=== PATIENT | female | born 2000 | race Two or more races ===

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

== ENCOUNTER 2018-05-22 14:24 | Emergency (ER) | payer OTHER ==
[2018-05-22 14:28] VITALS: BP 134/87; PULSE 88; RESP 18; TEMP 98.7
--- NOTE | 2018-05-22 14:39 | ED ---
Upper Extremity HPI - General Chief Complaint: Extremity Injury, Upper Stated Complaint: Fall, Shoulder pain Time Seen by Provider: 05/22/18 14:31 Source: patient, RN notes reviewed, old records reviewed Mode of arrival: ambulatory Limitations: no limitations - History of Present Illness Initial Comments: Patient is a 17-year-old female presents emergency Department chief complaint of right shoulder pain. Patient reports she's been dealing with chronic right shoulder pain for many months. She is follow-up with applications specialist and did have MRIs. Patient reports that on Monday she slipped on Monday and fell onto her right arm and shoulder. Patient reports that since that time she's had worsening pain and pain with any range of motion. She reports that she has is unable to abduct the shoulder greater than 90. Patient reports that she occasionally has had numbness and tingling down the arm. Her orthopedic is subsequently referred her to the neurologist who she is supposed to see in 2 weeks. Patient states that all of her symptoms have been exacerbated with this most recent fall. She denies any head or neck injury at that time. - Related Data Home Medications Medication Instructions Recorded Confirmed Montelukast [Singulair] 10 mg PO HS 11/03/13 04/09/17 Ferrous Sulfate [Feosol] 325 mg PO HS 07/20/15 04/09/17 Pantoprazole Sodium [Protonix] 20 mg PO HS 07/26/15 04/09/17 Multivitamins, Thera [Multivitamin] 1 tab PO HS 05/31/16 04/09/17 Amitriptyline HCl [Elavil] 75 mg PO HS 06/01/16 04/09/17 Escitalopram [Lexapro] 20 mg PO HS 08/31/16 04/09/17 Fluticasone/Salmeterol [Advair 1 inhalation PO RT-BID 08/31/16 04/09/17 250-50 Diskus] Melatonin 5 mg PO HS 08/31/16 04/09/17 Previous Rx's Medication Instructions Recorded Ibuprofen [Motrin] 600 mg PO Q6HR PRN #40 day 11/01/17 Cyclobenzaprine [Flexeril] 10 mg PO TID #15 tab 05/22/18 Ibuprofen 600 mg PO TID #20 tablet 05/22/18 Allergies Allergy/AdvReac Type Severity Reaction Status Date / Time No Known Allergies Allergy Verified 05/22/18 14:28 Review of Systems ROS Statement: Those systems with pertinent positive or pertinent negative responses have been documented in the HPI. ROS Other: All systems not noted in ROS Statement are negative. Past Medical History Past Medical History: Asthma, GERD/Reflux Additional Past Medical History / Comment(s): STOMACH PROBLEMS History of Any Multi-Drug Resistant Organisms: None Reported Past Surgical History: Appendectomy, Cholecystectomy Past Psychological History: Anxiety Smoking Status: Never smoker Past Alcohol Use History: None Reported Past Drug Use History: None Reported - Past Family History Father Family Medical History: Diabetes Mellitus, Hypertension Sister(s) Family Medical History: Asthma General Exam - General Exam Comments Initial Comments: This Patient is a 17-year-old female. Alert and oriented. Patient appears in no significant distress. Limitations: no limitations General appearance: alert, in no apparent distress Head exam: Present: atraumatic, normocephalic, normal inspection Eye exam: Present: normal appearance, PERRL, EOMI. Absent: scleral icterus, conjunctival injection, periorbital swelling ENT exam: Present: normal exam, mucous membranes moist Neck exam: Present: tenderness (Patient has tenderness over the right-sided paraspinal muscles and spine, extending to the trapezius. ). Absent: normal inspection, meningismus, lymphadenopathy Respiratory exam: Present: normal lung sounds bilaterally. Absent: respiratory distress, wheezes, rales, rhonchi, stridor Cardiovascular Exam: Present: regular rate, normal rhythm, normal heart sounds. Absent: systolic murmur, diastolic murmur, rubs, gallop, clicks Right Shoulder Exam: Present: normal inspection, tenderness (Tenderness over the third of the clavicle, and over the posterior shoulder and supraspinatus and trapezius.). Absent: full ROM ( has pain with abduction greater than 90.), swelling, abrasion Upper Arm exam: Present: normal inspection, full ROM Elbow exam: Present: normal inspection, full ROM Forearm Wrist exam: Present: normal inspection, full ROM Back exam: Present: normal inspection Neurological exam: Present: alert, oriented X3, CN II-XII intact Psychiatric exam: Present: normal affect, normal mood Skin exam: Present: warm, dry, intact, normal color. Absent: rash Course Vital Signs 05/22/18 14:25 Temperature 98.7 F Pulse Rate 88 Respiratory 18 Rate Blood Pressure 134/87 O2 Sat by Pulse 100 Oximetry Medical Decision Making - Medical Decision Making Patient is a 17-year-old female presents emergency Department today with chief complaint of right shoulder pain. Patient reports she fell on Monday on Monday. She's had history of chronic right shoulder problems. She has pain with abduction greater than 90. Normal capillary refill. Normal sensation distally. At this time x-rays of the acute process. She does have significant tenderness over the trapezius and concern for some muscle spasms at this time. She'll use and I am currently Norflex. I discussed the Patient can take muscle relaxer, and a temperature medication. Discussed falling up with applications specialist. She'll be given a sling. All questions answered return parameters were discussed. - Radiology Data Radiology results: report reviewed X-rays negative for any acute fracture dislocation of the right shoulder.If you change from prior. Disposition Clinical Impression: Rotator cuff injury, Trapezius muscle spasm Disposition: HOME SELF-CARE Condition: Good Instructions: Rotator Cuff Injury (ED) Additional Instructions: Patient advised to follow-up with applications specialist and primary care physician. Return to emergency department if any alarming signs or symptoms occur. Prescriptions: Cyclobenzaprine [Flexeril] 10 mg PO TID #15 tab Ibuprofen 600 mg PO TID #20 tablet Is patient prescribed a controlled substance at d/c from ED?: No Referrals: Barbi Flores MD [Primary Care Provider] - 1-2 days Garfield Canseco MD [STAFF PHYSICIAN] - 1-2 days Time of Disposition: 15:00
--- NOTE | 2018-05-22 14:54 | XR ---
EXAMINATION TYPE: XR shoulder complete RT DATE OF EXAM: 05/22/2018 CLINICAL HISTORY: Pain since fall injury 3 days ago. TECHNIQUE: Three views of the right shoulder are obtained. COMPARISON: Right shoulder x-ray November 01, 2017 FINDINGS: There is no acute fracture/dislocation evident in the right shoulder. The acromioclavicul ar and glenohumeral joint spaces appear within normal limits. The visualized ribs are intact and unr emarkable. IMPRESSION: There is no acute fracture or dislocation in the right shoulder. No significant change f rom prior.
[2018-05-22] MEDS ORDERED: KETOROLAC 60 MG/2 ML VIAL IM STA (14:59)
[2018-05-22] MEDS ORDERED: ORPHENADRINE 30 MG/ML 2 ML VIAL IM STA (14:59)
== END 2018-05-22 15:15 | disposition home or self-care (01) ==
LOC: EC 14:24
DX: S46.001A Unspecified injury of muscle(s) and tendon(s) of the rotator cuff of right shoulder, initial encounter (principal); M62.838 Other muscle spasm; J45.909 Unspecified asthma, uncomplicated; K21.9 Gastro-esophageal reflux disease without esophagitis; F41.9 Anxiety disorder, unspecified; Z79.899 Other long term (current) drug therapy; W01.0XXA Fall on same level from slipping, tripping and stumbling without subsequent striking against object, initial encounter
CPT/HCPCS: 73030; 99284; 96372 ×2; J2360; J1885

== ENCOUNTER → 2018-10-30 | Outpatient (CLI) | payer OTHER ==
--- NOTE | 2018-10-30 19:03 | XR ---
EXAMINATION TYPE: XR wrist complete RT DATE OF EXAM: 10/30/2018 COMPARISON: NONE HISTORY: 17 year-old female with wrist pain after fall 4 months ago TECHNIQUE: 3 views FINDINGS: Positive ulnar variance is demonstrated. The radiocarpal and midcarpal compartment appear intact. No acute fracture or dislocation seen. IMPRESSION: No acute osseous abnormality seen. Positive ulnar variance which may contribute to ulnar impaction sy ndrome/TFC tears.
== END | disposition home or self-care (01) ==
LOC: RADXRYALE 13:28
PROVIDERS: ATTEND Internal Medicine
DX: R93.7 Abnormal findings on diagnostic imaging of other parts of musculoskeletal system (principal); M25.531 Pain in right wrist

== ENCOUNTER 2019-05-24 19:15 | Emergency (ER) | payer OTHER ==
[2019-05-24 19:24] VITALS: RESP 18
[2019-05-24] MEDS ORDERED: SODIUM CHLORIDE 0.9% 1,000 ML IV STA (19:51)
--- NOTE | 2019-05-24 19:51 | ED ---
General Adult HPI - General Chief complaint: Nausea/Vomiting/Diarrhea Stated complaint: Abd pain, nausea Time Seen by Provider: 05/24/19 19:24 Source: patient, RN notes reviewed Mode of arrival: ambulatory Limitations: no limitations - History of Present Illness Initial comments: 1-year-old female presents emergency from treatment of right-sided abdominal pain. Patient states she's had on and off symptoms over the last 1 month but states since Monday she's had worsening symptoms. Patient states that she also started her menstrual cycle. Denies any chance . Patient denies any dysuria, hematuria, fever or chills. Patient has had mild constipation but that seemed to resolve. Patient states she's had prior cholecystectomy and appende ctomy. Patient states nothing really makes the pain feel better or worse. Most her pain is her right lower quadrant no prior ovarian issues. Denies any vaginal discharge. She does have mild bleeding. - Related Data Home Medications Medication Instructions Recorded Confirmed Montelukast [Singulair] 10 mg PO HS 11/03/13 05/22/18 Ferrous Sulfate [Feosol] 325 mg PO HS 07/20/15 05/22/18 Pantoprazole Sodium [Protonix] 20 mg PO HS 07/26/15 05/22/18 Multivitamins, Thera [Multivitamin] 1 tab PO HS 05/31/16 05/22/18 Amitriptyline HCl [Elavil] 75 mg PO HS 06/01/16 05/22/18 Escitalopram [Lexapro] 20 mg PO HS 08/31/16 05/22/18 Fluticasone/Salmeterol [Advair 1 inhalation PO RT-BID 08/31/16 05/22/18 250-50 Diskus] Melatonin 5 mg PO HS 08/31/16 05/22/18 Previous Rx's Medication Instructions Recorded Ibuprofen [Motrin] 600 mg PO Q6HR PRN #40 day 11/01/17 Cyclobenzaprine [Flexeril] 10 mg PO TID #15 tab 05/22/18 Ibuprofen 600 mg PO TID #20 tablet 05/22/18 Ibuprofen [Motrin] 600 mg PO Q8HR PRN #30 tab 05/24/19 Allergies Allergy/AdvReac Type Severity Reaction Status Date / Time No Known Allergies Allergy Verified 05/24/19 19:22 Review of Systems ROS Statement: Those systems with pertinent positive or pertinent negative responses have been documented in the HPI. ROS Other: All systems not noted in ROS Statement are negative. Past Medical History Past Medical History: Asthma, GERD/Reflux Additional Past Medical History / Comment(s): STOMACH PROBLEMS History of Any Multi-Drug Resistant Organisms: None Reported Past Surgical History: Appendectomy, Cholecystectomy Past Psychological History: Anxiety Smoking Status: Never smoker Past Alcohol Use History: None Reported Past Drug Use History: None Reported - Past Family History Father Family Medical History: Diabetes Mellitus, Hypertension Sister(s) Family Medical History: Asthma General Exam Limitations: no limitations General appearance: alert, in no apparent distress Head exam: Present: atraumatic, normocephalic, normal inspection Eye exam: Present: normal appearance, PERRL, EOMI. Absent: scleral icterus, conjunctival injection, periorbital swelling ENT exam: Present: normal exam, normal oropharynx, mucous membranes moist Neck exam: Present: normal inspection, full ROM. Absent: tenderness, meningismus, lymphadenopathy Respiratory exam: Present: normal lung sounds bilaterally. Absent: respiratory distress, wheezes, rales, rhonchi, stridor Cardiovascular Exam: Present: normal rhythm, tachycardia, normal heart sounds. Absent: systolic murmur, diastolic murmur, rubs, gallop, clicks GI/Abdominal exam: Present: soft, tenderness (Mild right-sided), normal bowel sounds. Absent: distended, guarding, rebound, rigid Back exam: Absent: CVA tenderness (R), CVA tenderness (L) Skin exam: Present: warm, dry, intact, normal color. Absent: rash Course Vital Signs 05/24/19 19:19 Temperature 98.9 F Pulse Rate 110 H Respiratory 18 Rate Blood Pressure 132/80 O2 Sat by Pulse 99 Oximetry Medical Decision Making - Medical Decision Making Labs urinalysis unremarkable ultrasound shows dominant follicle 1.2 cm in the right and this may be causing some discomfort. Patient's has no worsening symptoms emergency department. Patient is comfortable with conservative treatment and follow up with symptoms worsen. - Lab Data Result diagrams: 05/24/19 19:56 05/24/19 19:56 Lab Results 05/24/19 05/24/19 05/24/19 Range/Units 19:55 19:55 19:56 WBC (4.0-11.0) k/uL RBC (3.80-5.40) m/uL Hgb (11.4-16.0) gm/dL Hct (34.0-46.0) % MCV (80.0-100.0) fL MCH (25.0-35.0) pg MCHC (31.0-37.0) g/dL RDW (11.5-15.5) % Plt Count (150-450) k/uL Neutrophils % % Lymphocytes % % Monocytes % % Eosinophils % % Basophils % % Neutrophils # (1.3-7.7) k/uL Lymphocytes # (1.0-4.8) k/uL Monocytes # (0-1.0) k/uL Eosinophils # (0-0.7) k/uL Basophils # (0-0.2) k/uL Sodium 142 (137-145) mmol/L Potassium 4.1 (3.5-5.1) mmol/L Chloride 107 (98-107) mmol/L Carbon Dioxide 28 (22-30) mmol/L Anion Gap 7 mmol/L BUN 6 L (7-17) mg/dL Creatinine 0.68 (0.52-1.04) mg/dL Est GFR (CKD-EPI)AfAm >90 (>60 ml/min/1.73 sqM) Est GFR (CKD-EPI)NonAf >90 (>60 ml/min/1.73 sqM) Glucose 88 (74-99) mg/dL Calcium 9.3 (8.4-10.2) mg/dL Total Bilirubin 0.1 L (0.2-1.3) mg/dL AST 20 (14-36) U/L ALT 26 (9-52) U/L Alkaline Phosphatase 121 (38-126) U/L Total Protein 6.9 (6.3-8.2) g/dL Albumin 4.0 (3.5-5.0) g/dL Amylase 42 (30-110) U/L Lipase 39 (23-300) U/L Urine Color Yellow Urine Appearance Cloudy H (Clear) Urine pH 6.0 (5.0-8.0) Ur Specific [place] 1.019 (1.001-1.035) Urine Protein Negative (Negative) Urine Glucose (UA) Negative (Negative) Urine Ketones Negative (Negative) Urine Blood Moderate H (Negative) Urine Nitrite Negative (Negative) Urine Bilirubin Negative (Negative) Urine Urobilinogen <2.0 (<2.0) mg/dL Ur Leukocyte Esterase Small H (Negative) Urine RBC <1 (0-5) /hpf Urine WBC 4 (0-5) /hpf Ur Squamous Epith Cells 10 H (0-4) /hpf Urine Bacteria Rare H (None) /hpf Urine Mucus Rare H (None) /hpf Urine HCG, Qual Not Detected (Not Detectd) 05/24/19 Range/Units 19:56 WBC 9.7 (4.0-11.0) k/uL RBC 4.63 (3.80-5.40) m/uL Hgb 12.4 (11.4-16.0) gm/dL Hct 37.9 (34.0-46.0) % MCV 82.0 (80.0-100.0) fL MCH 26.9 (25.0-35.0) pg MCHC 32.8 (31.0-37.0) g/dL RDW 13.2 (11.5-15.5) % Plt Count 491 H (150-450) k/uL Neutrophils % 64 % Lymphocytes % 28 % Monocytes % 4 % Eosinophils % 2 % Basophils % 1 % Neutrophils # 6.2 (1.3-7.7) k/uL Lymphocytes # 2.7 (1.0-4.8) k/uL Monocytes # 0.4 (0-1.0) k/uL Eosinophils # 0.2 (0-0.7) k/uL Basophils # 0.1 (0-0.2) k/uL Sodium (137-145) mmol/L Potassium (3.5-5.1) mmol/L Chloride (98-107) mmol/L Carbon Dioxide (22-30) mmol/L Anion Gap mmol/L BUN (7-17) mg/dL Creatinine (0.52-1.04) mg/dL Est GFR (CKD-EPI)AfAm (>60 ml/min/1.73 sqM) Est GFR (CKD-EPI)NonAf (>60 ml/min/1.73 sqM) Glucose (74-99) mg/dL Calcium (8.4-10.2) mg/dL Total Bilirubin (0.2-1.3) mg/dL AST (14-36) U/L ALT (9-52) U/L Alkaline Phosphatase (38-126) U/L Total Protein (6.3-8.2) g/dL Albumin (3.5-5.0) g/dL Amylase (30-110) U/L Lipase (23-300) U/L Urine Color Urine Appearance (Clear) Urine pH (5.0-8.0) Ur Specific [place] (1.001-1.035) Urine Protein (Negative) Urine Glucose (UA) (Negative) Urine Ketones (Negative) Urine Blood (Negative) Urine Nitrite (Negative) Urine Bilirubin (Negative) Urine Urobilinogen (<2.0) mg/dL Ur Leukocyte Esterase (Negative) Urine RBC (0-5) /hpf Urine WBC (0-5) /hpf Ur Squamous Epith Cells (0-4) /hpf Urine Bacteria (None) /hpf Urine Mucus (None) /hpf Urine HCG, Qual (Not Detectd) Disposition Clinical Impression: Abdominal pain Disposition: HOME SELF-CARE Condition: Stable Instructions (If sedation given, give patient instructions): Abdominal Pain (ED) Additional Instructions: Please return to the Emergency Department if symptoms worsen or any other concerns. Prescriptions: Ibuprofen [Motrin] 600 mg PO Q8HR PRN #30 tab PRN Reason: Pain Is patient prescribed a controlled substance at d/c from ED?: No Referrals: Barbi Flores MD [Primary Care Provider] - 1-2 days Time of Disposition: 21:33
[2019-05-24 20:16] LABS: Appearance,Urine Cloudy (Clear); Bacteria,Urine Rare /hpf; Bilirubin,Urine Negative (Negative); Blood,Urine Moderate (Negative); Color,Urine Yellow; Glucose,Urine (UA) Negative (Negative); Ketones,Urine Negative (Negative); Leukocyte Esterase,Urine Small (Negative); Mucus,Urine Rare /hpf; Nitrite,Urine Negative (Negative); Protein,Urine Negative (Negative); RBC,Urine <1 /hpf (0-5); Specific Gravity,Urine 1.019 (1.001-1.035); Squamous Epithelial Cell,Urine 10 /hpf (0-4); Urobilinogen,Urine <2.0 mg/dL (<2.0)
[2019-05-24 20:17] LABS: ALT 26 U/L (9-52); AST 20 U/L (14-36); African American GFR (CKD) >90 (>60 ml/min/1.73 sqM); Alkaline Phosphatase 121 U/L (38-126); Amylase 42 U/L (30-110); Anion Gap 7 mmol/L; Blood Urea Nitrogen 6 mg/dL (7-17); Calcium 9.3 mg/dL (8.4-10.2); Carbon Dioxide 28 mmol/L (22-30); Chloride 107 mmol/L (98-107); Glucose 88 mg/dL (74-99); Non-African American GFR(CKD) >90 (>60 ml/min/1.73 sqM); Potassium 4.1 mmol/L (3.5-5.1); Sodium 142 mmol/L (137-145); Total Bilirubin 0.1 mg/dL (0.2-1.3); Total Protein 6.9 g/dL (6.3-8.2)
[2019-05-24 21:14] LABS: Basophils # (A) 0.1 k/uL (0-0.2); Basophils % (A) 1 %; Eosinophils # (A) 0.2 k/uL (0-0.7); Eosinophils % (A) 2 %; HCT 37.9 % (34.0-46.0); HGB 12.4 gm/dL (11.4-16.0); Lymphocytes # (A) 2.7 k/uL (1.0-4.8); Lymphocytes % (A) 28 %; MCH 26.9 pg (25.0-35.0); MCHC 32.8 g/dL (31.0-37.0); Mean Platelet Volume 6.2; Monocytes # (A) 0.4 k/uL (0-1.0); Monocytes % (A) 4 %; Neutrophils # (A) 6.2 k/uL (1.3-7.7); Neutrophils % (A) 64 %; Platelet Count 491 k/uL (150-450); RBC 4.63 m/uL (3.80-5.40); RDW 13.2 % (11.5-15.5); WBC 9.7 k/uL (4.0-11.0)
--- NOTE | 2019-05-24 21:24 | US ---
EXAMINATION TYPE: US transvaginal DATE OF EXAM: 05/24/2019 COMPARISON: US 2016 CLINICAL HISTORY: pain. Intermittent pelvic pain and nausea TECHNIQUE: Transvaginal ER exam. Date of LMP: 05/21/2019 EXAM MEASUREMENTS: Uterus: 5.2 x 3.2 x 4.4 cm Endometrial Stripe: 0.3 cm Right Ovary: 2.9 x 1.5 x 2.2 cm Left Ovary: 2.2 x 1.5 x 2.3 cm 1. Uterus: anteverted 2. Endometrium: wnl 3. Right Ovary: 1.2cm dominant follicle 4. Left Ovary: wnl Doppler perfusion documented with pulsed wave Doppler, within the right and the left ovary. 5. Bilateral Adnexa: wnl 6. Posterior cul-de-sac: wnl IMPRESSION: No acute process.
[2019-05-24 21:38] VITALS: BP 128/79; PULSE 98; TEMP 98
== END 2019-05-24 21:39 | disposition home or self-care (01) ==
LOC: EC 19:15
DX: R10.31 Right lower quadrant pain (principal); R93.89 Abnormal findings on diagnostic imaging of other specified body structures; R00.0 Tachycardia, unspecified; K59.00 Constipation, unspecified; N94.89 Other specified conditions associated with female genital organs and menstrual cycle; J45.909 Unspecified asthma, uncomplicated; K21.9 Gastro-esophageal reflux disease without esophagitis; F41.9 Anxiety disorder, unspecified; Z79.51 Long term (current) use of inhaled steroids; Z79.899 Other long term (current) drug therapy; Z90.49 Acquired absence of other specified parts of digestive tract
CPT/HCPCS: 36415; 76830; 80053; 81001; 81025; 82150; 83690; 85025; 93975; 96360; 99284

== ENCOUNTER 2019-08-27 16:03 | Emergency (ER) | payer OTHER ==
[2019-08-27 16:15] VITALS: BP 145/94; PULSE 89; RESP 20; TEMP 98.1
[2019-08-27 16:40] LABS: Appearance,Urine Cloudy (Clear); Bacteria,Urine Rare /hpf; Bilirubin,Urine Negative (Negative); Blood,Urine Negative (Negative); Color,Urine Yellow; Glucose,Urine (UA) Negative (Negative); Ketones,Urine Negative (Negative); Leukocyte Esterase,Urine Large (Negative); Mucus,Urine Rare /hpf; Nitrite,Urine Negative (Negative); Protein,Urine Negative (Negative); RBC,Urine 2 /hpf (0-5); Specific Gravity,Urine 1.017 (1.001-1.035); Squamous Epithelial Cell,Urine 13 /hpf (0-4); Urobilinogen,Urine <2.0 mg/dL (<2.0); WBC,Urine 4 /hpf (0-5)
--- NOTE | 2019-08-27 16:43 | ED ---
Abdominal Pain HPI - General Chief Complaint: Abdominal Pain Stated Complaint: test Time Seen by Provider: 08/27/19 16:17 Source: patient Mode of arrival: ambulatory Limitations: no limitations - History of Present Illness Initial Comments: Patient is a 18-year-old female presenting to emergency Department with complaints of some mild right lower quadrant pain as well as intermittent nausea and vomiting for the past 1-2 weeks. She denies fever, chills, diarrhea. She states she does have a history of a right-sided ovarian cyst. She has history of appendectomy, cholecystectomy. She denies chest pain, shortness of breath. She states she took an at home test that was negative. She states she does take control pills however she missed a week since she was out of town. Patient states she is also mildly concerned with SCDs secondary to her boyfriend cheating on her. She denies having any vaginal discharge or dysuria. She has no other complaints. Upon arrival to the ER, vital signs are stable. - Related Data Home Medications Medication Instructions Recorded Confirmed Montelukast [Singulair] 10 mg PO HS 11/03/13 05/22/18 Ferrous Sulfate [Feosol] 325 mg PO HS 07/20/15 05/22/18 Pantoprazole Sodium [Protonix] 20 mg PO HS 07/26/15 05/22/18 Multivitamins, Thera [Multivitamin] 1 tab PO HS 05/31/16 05/22/18 Amitriptyline HCl [Elavil] 75 mg PO HS 06/01/16 05/22/18 Escitalopram [Lexapro] 20 mg PO HS 08/31/16 05/22/18 Fluticasone/Salmeterol [Advair 1 inhalation PO RT-BID 08/31/16 05/22/18 250-50 Diskus] Melatonin 5 mg PO HS 08/31/16 05/22/18 Previous Rx's Medication Instructions Recorded Ibuprofen [Motrin] 600 mg PO Q6HR PRN #40 day 11/01/17 Cyclobenzaprine [Flexeril] 10 mg PO TID #15 tab 05/22/18 Ibuprofen 600 mg PO TID #20 tablet 05/22/18 Ibuprofen [Motrin] 600 mg PO Q8HR PRN #30 tab 05/24/19 Allergies Allergy/AdvReac Type Severity Reaction Status Date / Time No Known Allergies Allergy Verified 08/27/19 16:15 Review of Systems ROS Statement: Those systems with pertinent positive or pertinent negative responses have been documented in the HPI. ROS Other: All systems not noted in ROS Statement are negative. Past Medical History Past Medical History: Asthma, GERD/Reflux Additional Past Medical History / Comment(s): STOMACH PROBLEMS History of Any Multi-Drug Resistant Organisms: None Reported Past Surgical History: Appendectomy, Cholecystectomy Past Psychological History: Anxiety Smoking Status: Never smoker Past Alcohol Use History: None Reported Past Drug Use History: None Reported - Past Family History Father Family Medical History: Diabetes Mellitus, Hypertension Sister(s) Family Medical History: Asthma General Exam - General Exam Comments Initial Comments: GENERAL: Well-appearing, well-nourished and in no acute distress. HEAD: Atraumatic, normocephalic. EYES: Pupils equal round and reactive to light, extraocular movements intact, sclera anicteric, conjunctiva are normal. ENT: TMs normal, nares patent, oropharynx clear without exudates. Moist mucous membranes. NECK: Normal range of motion, supple without lymphadenopathy or JVD. LUNGS: Breath sounds clear to auscultation bilaterally and equal. No wheezes rales or rhonchi. HEART: Regular rate and rhythm without murmurs, rubs or gallops. ABDOMEN: Soft, nontender, normoactive bowel sounds. No guarding, no rebound. No masses appreciated. EXTREMITIES: Normal range of motion, no pitting or edema. No clubbing or cyanosis. SKIN: Warm, Dry, normal turgor, no rashes or lesions noted. Limitations: no limitations External exam: Present: normal external exam Speculum exam: Present: normal speculum exam. Absent: cervical discharge, vaginal bleeding, foreign body By manual exam: Present: normal by manual exam Course Vital Signs 08/27/19 16:11 Temperature 98.1 F Pulse Rate 89 Respiratory 20 Rate Blood Pressure 145/94 O2 Sat by Pulse 99 Oximetry Medical Decision Making - Medical Decision Making Patient is a 18-year-old female here for mild right sided lower abdominal discomfort as well as intermittent nausea and vomiting for the past 1-2 weeks. Vital signs are stable. Her exam is unremarkable, no abdominal pain on palpation. Vaginal exam is normal. Urine is normal, patient is not . Trichomonas is negative. Gonorrhea, chlamydia, genital culture are all pending at this time. I reviewed these findings with the patient. Her pain is most likely related to her ovarian cyst. Patient will continue to take Motrin as needed for pain relief. Patient stable for discharge at this time and she is in agreement with this plan of care. Return parameters were discussed with the patient she verbalized understanding. - Lab Data Lab Results 08/27/19 08/27/19 08/27/19 Range/Units 16:20 16:20 16:45 Urine Color Yellow Urine Appearance Cloudy H (Clear) Urine pH 7.0 (5.0-8.0) Ur Specific [place] 1.017 (1.001-1.035) Urine Protein Negative (Negative) Urine Glucose (UA) Negative (Negative) Urine Ketones Negative (Negative) Urine Blood Negative (Negative) Urine Nitrite Negative (Negative) Urine Bilirubin Negative (Negative) Urine Urobilinogen <2.0 (<2.0) mg/dL Ur Leukocyte Esterase Large H (Negative) Urine RBC 2 (0-5) /hpf Urine WBC 4 (0-5) /hpf Ur Squamous Epith Cells 13 H (0-4) /hpf Urine Bacteria Rare H (None) /hpf Urine Mucus Rare H (None) /hpf Urine HCG, Qual Not Detected (Not Detectd) Trichomonas Ag (Rapid) Negative (Negative) Disposition Clinical Impression: Abdominal pain Disposition: HOME SELF-CARE Condition: Stable Instructions (If sedation given, give patient instructions): Abdominal Pain (ED) Additional Instructions: Please return to the Emergency Department if symptoms worsen or any other concerns. Follow-up with PCP. May take Motrin for pain relief. Is patient prescribed a controlled substance at d/c from ED?: No Referrals: Barbi Flores MD [Primary Care Provider] - 1-2 days
[2019-08-28 14:05] LABS: C. trachomatis,PCR Negative (Neg,Equiv); Chlamydia trachomatis Source Cervix; N. gonorrhoeae,PCR Negative (Neg,Equiv); Neisseria Source Cervix
== END 2019-08-27 17:12 | disposition home or self-care (01) ==
LOC: EC 16:03
DX: R10.31 Right lower quadrant pain (principal); R11.2 Nausea with vomiting, unspecified; Z32.02 Encounter for pregnancy test, result negative; J45.909 Unspecified asthma, uncomplicated; K21.9 Gastro-esophageal reflux disease without esophagitis; F41.9 Anxiety disorder, unspecified; Z90.49 Acquired absence of other specified parts of digestive tract; Z79.51 Long term (current) use of inhaled steroids; Z79.899 Other long term (current) drug therapy
CPT/HCPCS: 81001; 81025; 87070; 87491; 87591; 87808; 99284

== ENCOUNTER → 2020-04-29 | Outpatient (CLI) | payer BC | END | disposition home or self-care (01) | LOC: LABWHC1 16:13 | PROVIDERS: ATTEND Internal Medicine | DX: Z20.828 Contact with and (suspected) exposure to other viral communicable diseases (principal) | CPT/HCPCS: U0003; C9803 ==

== ENCOUNTER → 2021-01-19 | Outpatient (CLI) | payer OTHER ==
--- NOTE | 2021-01-19 15:11 | US ---
EXAMINATION TYPE: Transabdominal DATE OF EXAM: 01/19/2021 2:40 PM COMPARISON: NONE CLINICAL HISTORY: Z36 Confrim dates. EXAM PERFORMED: Transabdominal (TA) EXAM MEASUREMENTS: GESTATIONAL AGE / DATING Physician Established: Not yet established Dates by LMP: (9 weeks/5 days) EDC: 08/19/2021 Dates by First Scan: No previous this is first scan Dates by Current Scan for: (10 weeks/1 days) EDC: 08/16/2021 MATERNAL ANATOMY Uterus: 13.5 x 4.8 x 5.9cm Right Ovary: 3.3 x 1.7 x 1.5cm Left Ovary: 2.9 x 1.8 x 2.2cm Post CDS / Adnexa: wnl Presence of free fluid: no Presence of corpus luteal cyst: left ovary: 2.0cm Presence of subchorionic bleed: no GESTATION / SURVEY CRL: 3.2cm (10 weeks/1 days) Yolk Sac (normal less than 6mm): not seen Heart Rate: 160 bpm Rhythm: Normal IUP: Viable IUP Date of LMP: 11/12/2020 Viable single IUP measuring 10 weeks 1 day with a heart rate of 160bpm and an estimated delivery date of 08/16/2021. IMPRESSION: Single live intrauterine measuring approximately 10 weeks and 1 day gestation by sonographi c criteria.
== END | disposition home or self-care (01) ==
LOC: RADUSWWP 14:19
PROVIDERS: ATTEND Obstetrics & Gynecology
DX: Z36.89 Encounter for other specified antenatal screening (principal); Z3A.10 10 weeks gestation of pregnancy
CPT/HCPCS: 76801

== ENCOUNTER 2021-02-07 15:03 | Emergency (ER) | payer OTHER ==
--- NOTE | 2021-02-07 15:36 | ED ---
General Adult HPI - General Chief complaint: Vaginal Bleeding Stated complaint: vaginal bleeding, 12 weeks Time Seen by Provider: 02/07/21 15:15 Source: patient Mode of arrival: wheelchair Limitations: no limitations - History of Present Illness Initial comments: Dictation was produced using [employer] dictation software. please excuse any gra mmatical, word or spelling errors. Chief Complaint: 20-year-old female presents to the emergency department for vaginal bleeding and History of Present Illness: 20-year-old female she has no significant comorbidities. Patient is allegedly 12 weeks based on last menstrual cycle. She has had OB and care. 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 Today she has been having some vaginal bleeding. For the last 2-3 days she's had some pelvic cramping. She went to [facility] recently and was told that the bleeding was from changes and . Patient states she's having some suprapubic cramping. No nausea vomiting. This is her first . The ROS documented in this emergency department record has been reviewed and confirmed by me. Those systems with pertinent positive or negative responses have been documented in the HPI. All other systems are other negative and/or noncontributory. PHYSICAL EXAM: General Impression: Alert and oriented x3, not in acute distress HEENT: Normocephalic atraumatic, extra-ocular movements intact, pupils equal and reactive to light bilaterally, mucous membranes moist. Cardiovascular: Heart regular rate and rhythm Chest: Able to complete full sentences, no retractions, no tachypnea Abdomen: abdomen soft, non-tender, non-distended, no organomegaly Musculoskeletal: Pulses present and equal in all extremities, no peripheral edema Motor: no focal deficits noted Neurological: CN II-XII grossly intact, no focal motor or sensory deficits noted Skin: Intact with no visualized rashes Psych: Normal affect and mood Pelvic exam: Refused ED course: 20-year-old feel presents to the emergency department for vaginal bleeding and . She is allegedly 12 weeks . Vital Signs upon arrival are within acceptable limits. Blood type is A+. Laboratory evaluation within acceptable limits. Beta Quant is 141,000. Urinalysis shows blood but no signs of infection. Ultrasound shows live single intrauterine fetus with heart rate of 148 measuring 12 weeks and 6 days. Patient related bedside at 6 PM found to be stable medical condition. Patient counseled on pelvic rest and to follow-up with her orchestra leader. - Related Data Home Medications Medication Instructions Recorded Confirmed Montelukast [Singulair] 10 mg PO HS 11/03/13 05/22/18 Ferrous Sulfate [Feosol] 325 mg PO HS 07/20/15 05/22/18 Pantoprazole Sodium [Protonix] 20 mg PO HS 07/26/15 05/22/18 Multivitamins, Thera [Multivitamin] 1 tab PO HS 05/31/16 05/22/18 Amitriptyline HCl [Elavil] 75 mg PO HS 06/01/16 05/22/18 Escitalopram [Lexapro] 20 mg PO HS 08/31/16 05/22/18 Fluticasone/Salmeterol [Advair 1 inhalation PO RT-BID 08/31/16 05/22/18 250-50 Diskus] Melatonin 5 mg PO HS 08/31/16 05/22/18 Previous Rx's Medication Instructions Recorded Ibuprofen [Motrin] 600 mg PO Q6HR PRN #40 day 11/01/17 Cyclobenzaprine [Flexeril] 10 mg PO TID #15 tab 05/22/18 Ibuprofen 600 mg PO TID #20 tablet 05/22/18 Ibuprofen [Motrin] 600 mg PO Q8HR PRN #30 tab 05/24/19 Allergies Allergy/AdvReac Type Severity Reaction Status Date / Time No Known Allergies Allergy Verified 02/07/21 15:07 Review of Systems ROS Statement: Those systems with pertinent positive or pertinent negative responses have been documented in the HPI. ROS Other: All systems not noted in ROS Statement are negative. Past Medical History Past Medical History: Asthma, GERD/Reflux Additional Past Medical History / Comment(s): STOMACH PROBLEMS History of Any Multi-Drug Resistant Organisms: None Reported Past Surgical History: Appendectomy, Cholecystectomy Past Psychological History: Anxiety Smoking Status: Never smoker Past Alcohol Use History: None Reported Past Drug Use History: None Reported - Past Family History Father Family Medical History: Diabetes Mellitus, Hypertension Sister(s) Family Medical History: Asthma General Exam Limitations: no limitations Course Vital Signs 02/07/21 15:07 Temperature 98.7 F Pulse Rate 99 Respiratory 16 Rate Blood Pressure 126/85 O2 Sat by Pulse 97 Oximetry Medical Decision Making - Lab Data Result diagrams: 02/07/21 15:33 02/07/21 15:33 Lab Results 02/07/21 02/07/21 02/07/21 Range/Units 15:33 15:33 15:33 WBC 9.0 (3.8-10.6) k/uL RBC 4.58 (3.80-5.40) m/uL Hgb 12.0 (11.4-16.0) gm/dL Hct 36.2 (34.0-46.0) % MCV 78.9 L (80.0-100.0) fL MCH 26.1 (25.0-35.0) pg MCHC 33.1 (31.0-37.0) g/dL RDW 15.8 H (11.5-15.5) % Plt Count 342 (150-450) k/uL MPV 8.5 Neutrophils % 75 % Lymphocytes % 20 % Monocytes % 3 % Eosinophils % 1 % Basophils % 0 % Neutrophils # 6.7 (1.3-7.7) k/uL Lymphocytes # 1.8 (1.0-4.8) k/uL Monocytes # 0.3 (0-1.0) k/uL Eosinophils # 0.1 (0-0.7) k/uL Basophils # 0.0 (0-0.2) k/uL PT (9.0-12.0) sec INR (<1.2) APTT (22.0-30.0) sec Sodium 133 L (137-145) mmol/L Potassium 4.0 (3.5-5.1) mmol/L Chloride 106 (98-107) mmol/L Carbon Dioxide 20 L (22-30) mmol/L Anion Gap 7 mmol/L BUN 5 L (7-17) mg/dL Creatinine 0.51 L (0.52-1.04) mg/dL Est GFR (CKD-EPI)AfAm >90 (>60 ml/min/1.73 sqM) Est GFR (CKD-EPI)NonAf >90 (>60 ml/min/1.73 sqM) Glucose 83 (74-99) mg/dL Calcium 9.1 (8.4-10.2) mg/dL HCG, Quant 019733.0 mIU/mL Urine Color Dark Yellow Urine Appearance Cloudy H (Clear) Urine pH 6.0 (5.0-8.0) Ur Specific [place] 1.032 (1.001-1.035) Urine Protein 2+ H (Negative) Urine Glucose (UA) Negative (Negative) Urine Ketones Trace H (Negative) Urine Blood Moderate H (Negative) Urine Nitrite Negative (Negative) Urine Bilirubin 1+ H (Negative) Urine Urobilinogen 3.0 (<2.0) mg/dL Ur Leukocyte Esterase Trace H (Negative) Urine RBC 10 H (0-5) /hpf Urine WBC 4 (0-5) /hpf Ur Squamous Epith Cells 15 H (0-4) /hpf Urine Bacteria Rare H (None) /hpf Hyaline Casts 45 H (0-2) /lpf Urine Mucus Many H (None) /hpf Blood Type Blood Type Confirm Blood Type Recheck Bld Type Recheck Status Antibody Screen Spec Expiration Date 02/07/21 02/07/21 02/07/21 Range/Units 15:33 15:33 15:40 WBC (3.8-10.6) k/uL RBC (3.80-5.40) m/uL Hgb (11.4-16.0) gm/dL Hct (34.0-46.0) % MCV (80.0-100.0) fL MCH (25.0-35.0) pg MCHC (31.0-37.0) g/dL RDW (11.5-15.5) % Plt Count (150-450) k/uL MPV Neutrophils % % Lymphocytes % % Monocytes % % Eosinophils % % Basophils % % Neutrophils # (1.3-7.7) k/uL Lymphocytes # (1.0-4.8) k/uL Monocytes # (0-1.0) k/uL Eosinophils # (0-0.7) k/uL Basophils # (0-0.2) k/uL PT 10.1 (9.0-12.0) sec INR 0.9 (<1.2) APTT 21.6 L (22.0-30.0) sec Sodium (137-145) mmol/L Potassium (3.5-5.1) mmol/L Chloride (98-107) mmol/L Carbon Dioxide (22-30) mmol/L Anion Gap mmol/L BUN (7-17) mg/dL Creatinine (0.52-1.04) mg/dL Est GFR (CKD-EPI)AfAm (>60 ml/min/1.73 sqM) Est GFR (CKD-EPI)NonAf (>60 ml/min/1.73 sqM) Glucose (74-99) mg/dL Calcium (8.4-10.2) mg/dL HCG, Quant mIU/mL Urine Color Urine Appearance (Clear) Urine pH (5.0-8.0) Ur Specific [place] (1.001-1.035) Urine Protein (Negative) Urine Glucose (UA) (Negative) Urine Ketones (Negative) Urine Blood (Negative) Urine Nitrite (Negative) Urine Bilirubin (Negative) Urine Urobilinogen (<2.0) mg/dL Ur Leukocyte Esterase (Negative) Urine RBC (0-5) /hpf Urine WBC (0-5) /hpf Ur Squamous Epith Cells (0-4) /hpf Urine Bacteria (None) /hpf Hyaline Casts (0-2) /lpf Urine Mucus (None) /hpf Blood Type A Positive Blood Type Confirm A Positive Blood Type Recheck No Previous Record Bld Type Recheck Status CABO Indicated Antibody Screen NEGATIVE Spec Expiration Date 02/10/20212339 Disposition Clinical Impression: Threatened miscarriage Disposition: HOME SELF-CARE Condition: Fair Instructions (If sedation given, give patient instructions): Threatened Mi scarriage (ED) Is patient prescribed a controlled substance at d/c from ED?: No Referrals: Blanca Perez DO [Family Provider] - 1-2 days
[2021-02-07 16:03] LABS: Basophils % (A) 0 %; Eosinophils # (A) 0.1 k/uL (0-0.7); Eosinophils % (A) 1 %; HCT 36.2 % (34.0-46.0); Lymphocytes # (A) 1.8 k/uL (1.0-4.8); Lymphocytes % (A) 20 %; MCH 26.1 pg (25.0-35.0); MCHC 33.1 g/dL (31.0-37.0); MCV 78.9 fL (80.0-100.0); Mean Platelet Volume 8.5; Monocytes # (A) 0.3 k/uL (0-1.0); Monocytes % (A) 3 %; Neutrophils # (A) 6.7 k/uL (1.3-7.7); Neutrophils % (A) 75 %; Platelet Count 342 k/uL (150-450); RBC 4.58 m/uL (3.80-5.40); RDW 15.8 % (11.5-15.5)
[2021-02-07 16:08] LABS: Appearance,Urine Cloudy (Clear); Bacteria,Urine Rare /hpf; Bilirubin,Urine 1+ (Negative); Blood,Urine Moderate (Negative); Color,Urine Dark Yellow; Glucose,Urine (UA) Negative (Negative); Hyaline Casts,Urine 45 /lpf (0-2); Ketones,Urine Trace (Negative); Leukocyte Esterase,Urine Trace (Negative); Mucus,Urine Many /hpf; Nitrite,Urine Negative (Negative); Protein,Urine 2+ (Negative); RBC,Urine 10 /hpf (0-5); Specific Gravity,Urine 1.032 (1.001-1.035); Squamous Epithelial Cell,Urine 15 /hpf (0-4); WBC,Urine 4 /hpf (0-5)
[2021-02-07 16:13] LABS: African American GFR (CKD) >90 (>60 ml/min/1.73 sqM); Anion Gap 7 mmol/L; Blood Urea Nitrogen 5 mg/dL (7-17); Calcium 9.1 mg/dL (8.4-10.2); Carbon Dioxide 20 mmol/L (22-30); Chloride 106 mmol/L (98-107); Glucose 83 mg/dL (74-99); Non-African American GFR(CKD) >90 (>60 ml/min/1.73 sqM); Sodium 133 mmol/L (137-145)
[2021-02-07 16:30] LABS: INR 0.9 (<1.2); Prothrombin Time 10.1 sec (9.0-12.0)
[2021-02-07 16:37] LABS: Partial Thromboplastin Time 21.6 sec (22.0-30.0)
--- NOTE | 2021-02-07 17:48 | US ---
EXAMINATION TYPE: Transabdominal DATE OF EXAM: 02/07/2021 5:25 PM COMPARISON: 01/19/2021 CLINICAL HISTORY: pelvic pain. bleeding EXAM PERFORMED: Transabdominal (TA) EXAM MEASUREMENTS: GESTATIONAL AGE / DATING Physician Established: Not yet established Dates by LMP: (12 weeks/6 days) EDC: 08/16/2021 Dates by First Scan: (10 weeks/1 days) EDC: 08/16/2021 Dates by Current Scan for: (12 weeks/6 days) EDC: MATERNAL ANATOMY Uterus: 11.2 x 7.2 x 8.5 cm Right Ovary: Obscured by bowel gas Left Ovary: 3.1 x 2.2 x 2.3 cm Post CDS / Adnexa: wnl Presence of free fluid: no Presence of corpus luteal cyst: no Presence of subchorionic bleed: no GESTATION / SURVEY CRL: 6.55 cm (12 weeks/6 days) Heart Rate: 148 bpm Rhythm: Normal IUP: Viable IUP Beta HcG (if available): Not available at this time IMPRESSION: The ultrasound gestational age is 12 weeks and 6 days. No complicating process seen.
[2021-02-07 18:19] VITALS: BP 122/80; PULSE 90; RESP 16; TEMP 98.1
== END 2021-02-07 18:18 | disposition home or self-care (01) ==
LOC: EC 15:03
DX: O20.0 Threatened abortion (principal); O99.341 Other mental disorders complicating pregnancy, first trimester; F41.9 Anxiety disorder, unspecified; J45.909 Unspecified asthma, uncomplicated; K21.9 Gastro-esophageal reflux disease without esophagitis; Z90.49 Acquired absence of other specified parts of digestive tract; Z3A.12 12 weeks gestation of pregnancy
CPT/HCPCS: 36415; 76801; 80048; 81001; 84702; 85025; 85610; 85730; 86850; 86900; 86901; 99284

== ENCOUNTER 2021-03-04 04:36 | Emergency (ER) | payer OTHER ==
[2021-03-04 04:44] VITALS: RESP 18; TEMP 98.5
--- NOTE | 2021-03-04 05:08 | ED ---
Asthma HPI - General Stated Complaint: TREASURE when laying down Time Seen by Provider: 03/04/21 04:38 Source: patient, RN notes reviewed, old records reviewed Mode of arrival: ambulatory Limitations: no limitations - History of Present Illness Initial Comments: This is a 18-year-old female to the emergency department today for evaluation patient Dese for evaluation of not feeling well. Soreness in her throat tightness in her throat coughing coughing up mucus cough and congestion especially with laying down. Patient has history of asthma with no recent hospitalizations, history of positive currently has been around RSV . Otherwise no fevers no other complaints MD Complaint: "asthma attack", other (Anxiety) -: days(s) (3) Asthma History: childhood onset Severity: mild Context: recent URI Associated Symptoms: productive cough Treatments Prior to Arrival: other (none) - Related Data Current Asthma Therapy: none Home Medications Medication Instructions Recorded Confirmed Montelukast [Singulair] 10 mg PO HS 11/03/13 05/22/18 Ferrous Sulfate [Feosol] 325 mg PO HS 07/20/15 05/22/18 Pantoprazole Sodium [Protonix] 20 mg PO HS 07/26/15 05/22/18 Multivitamins, Thera [Multivitamin] 1 tab PO HS 05/31/16 05/22/18 Amitriptyline HCl [Elavil] 75 mg PO HS 06/01/16 05/22/18 Escitalopram [Lexapro] 20 mg PO HS 08/31/16 05/22/18 Fluticasone/Salmeterol [Advair 1 inhalation PO RT-BID 08/31/16 05/22/18 250-50 Diskus] Melatonin 5 mg PO HS 08/31/16 05/22/18 Previous Rx's Medication Instructions Recorded Ibuprofen [Motrin] 600 mg PO Q6HR PRN #40 day 11/01/17 Cyclobenzaprine [Flexeril] 10 mg PO TID #15 tab 05/22/18 Ibuprofen 600 mg PO TID #20 tablet 05/22/18 Ibuprofen [Motrin] 600 mg PO Q8HR PRN #30 tab 05/24/19 Allergies Allergy/AdvReac Type Severity Reaction Status Date / Time No Known Allergies Allergy Verified 03/04/21 04:44 Review of Systems ROS Statement: Those systems with pertinent positive or pertinent negative responses have been documented in the HPI. ROS Other: All systems not noted in ROS Statement are negative. Past Medical History Past Medical History: Asthma, GERD/Reflux Additional Past Medical History / Comment(s): STOMACH PROBLEMS History of Any Multi-Drug Resistant Organisms: None Reported Past Surgical History: Appendectomy, Cholecystectomy Past Psychological History: Anxiety Smoking Status: Never smoker Past Alcohol Use History: None Reported Past Drug Use History: None Reported - Past Family History Father Family Medical History: Diabetes Mellitus, Hypertension Sister(s) Family Medical History: Asthma General Exam - General Exam Comments Initial Comments: No stridor no distress Limitations: no limitations General appearance: alert, in no apparent distress Head exam: Present: atraumatic, normocephalic, normal inspection Eye exam: Present: normal appearance, PERRL, EOMI. Absent: scleral icterus, conjunctival injection, periorbital swelling ENT exam: Present: normal exam, mucous membranes moist Neck exam: Present: normal inspection. Absent: tenderness, meningismus, lymphadenopathy Respiratory exam: Present: normal lung sounds bilaterally. Absent: respiratory distress, wheezes, rales, rhonchi, stridor Cardiovascular Exam: Present: regular rate, normal rhythm, normal heart sounds. Absent: systolic murmur, diastolic murmur, rubs, gallop, clicks GI/Abdominal exam: Present: soft, normal bowel sounds. Absent: distended, tenderness, guarding, rebound, rigid Extremities exam: Present: normal inspection, full ROM, normal capillary refill. Absent: tenderness, pedal edema, joint swelling, calf tenderness Back exam: Present: normal inspection Neurological exam: Present: alert, oriented X3, CN II-XII intact Psychiatric exam: Present: normal affect, normal mood Skin exam: Present: warm, dry, intact, normal color. Absent: rash Course Vital Signs 03/04/21 03/04/21 03/04/21 04:41 05:32 05:36 Temperature 98.5 F Pulse Rate 82 82 84 Respiratory 18 Rate Blood Pressure 149/86 O2 Sat by Pulse 97 Oximetry 03/04/21 07:05 Temperature Pulse Rate 77 Respiratory 18 Rate Blood Pressure 132/72 O2 Sat by Pulse 98 Oximetry - Reevaluation(s) Reevaluation #1: 03/04/21 Medical record is reviewed No significant improved here in the ER Patient informed results and questions answered Medical Decision Making - Medical Decision Making 20 female to the emergency department for evaluation patient presents for asthma exacerbation with upper respiratory infection symptoms are resolved here in the ER patient can be discharged home - Radiology Data Radiology results: report reviewed (Chest x-rays negative for acute disease), image reviewed Disposition Clinical Impression: Acute upper respiratory infection Disposition: HOME SELF-CARE Condition: Good Instructions (If sedation given, give patient instructions): Upper Respiratory Infection (ED) Is patient prescribed a controlled substance at d/c from ED?: No Referrals: Barbi Flores MD [Primary Care Provider] - 1-2 days
[2021-03-04] MEDS ORDERED: predniSONE 20 MG TAB PO STA (05:19)
[2021-03-04] MEDS ORDERED: diphenhydrAMINE 50 MG CAP PO STA (05:19)
[2021-03-04] MEDS ORDERED: ALBUTEROL NEBULIZED 2.5 MG/3 ML INHALATION STA (05:19)
--- NOTE | 2021-03-04 06:11 | XR ---
EXAMINATION TYPE: XR chest 1V portable DATE OF EXAM: 03/04/2021 COMPARISON: 08/31/2016 HISTORY: Altered mental status. Fever. TECHNIQUE: FINDINGS: Heart and mediastinum are normal. Lungs are clear. Diaphragm is normal. Bony thorax appears normal. IMPRESSION: Normal chest. No change.
[2021-03-04 07:07] VITALS: BP 132/72; PULSE 77
== END 2021-03-04 07:05 | disposition home or self-care (01) ==
LOC: EC 04:36
DX: J06.9 Acute upper respiratory infection, unspecified (principal); J45.909 Unspecified asthma, uncomplicated; K21.9 Gastro-esophageal reflux disease without esophagitis; F41.9 Anxiety disorder, unspecified; Z90.49 Acquired absence of other specified parts of digestive tract
CPT/HCPCS: 99283; 94640; 71045; J7512

== ENCOUNTER 2021-03-06 19:24 | Emergency (ER) | payer OTHER ==
[2021-03-06] MEDS ORDERED: SODIUM CHLORIDE 0.9% 1,000 ML IV STA (20:04)
[2021-03-06] MEDS ORDERED: ONDANSETRON 4 MG/2 ML VIAL IVP STA (20:05)
--- NOTE | 2021-03-06 20:35 | ED ---
URI HPI - General Chief Complaint: Upper Respiratory Infection Stated Complaint: vomiting,cough Time Seen by Provider: 03/06/21 19:57 Source: patient Mode of arrival: ambulatory Limitations: no limitations - History of Present Illness Initial Comments: Patient is a 20-year-old female, currently 16 weeks , presenting to the emergency Department with complaints of a cough, nausea and vomiting as well as a headache over the past 3 days. She states she was here 2 days ago for similar complaint as when she laid back she finally she couldn't breathe because of all the postnasal congestion. She has been doing at home nebulizers with some mild improvement in her symptoms. Over the past 2 days she's been having increasing nausea and vomiting as well as a headache and feels like she is getting dehydrated. She denies any fevers or chills. She denies any chest pains, some occasional shortness of breath when she is coughing a lot. She denies abdominal pain, no vaginal bleeding. She is currently 16 weeks , first , SPECIAL PROGRAMS DIRECTOR is Dr. Perez. has been uncomplicated thus far. She has no further complaints. Her vital signs are stable upon arrival. - Related Data Home Medications Medication Instructions Recorded Confirmed Yei-Hfqy-Wosvh Acid 1 cap PO DAILY 03/06/21 03/06/21 [-U Capsule (formulary)] Previous Rx's Medication Instructions Recorded Ibuprofen [Motrin] 600 mg PO Q8HR PRN #30 tab 05/24/19 Allergies Allergy/AdvReac Type Severity Reaction Status Date / Time No Known Allergies Allergy Verified 03/06/21 20:22 Review of Systems ROS Statement: Those systems with pertinent positive or pertinent negative responses have been documented in the HPI. ROS Other: All systems not noted in ROS Statement are negative. Past Medical History Past Medical History: Asthma, GERD/Reflux Additional Past Medical History / Comment(s): STOMACH PROBLEMS History of Any Multi-Drug Resistant Organisms: None Reported Past Surgical History: Appendectomy, Cholecystectomy Past Psychological History: Anxiety Smoking Status: Never smoker Past Alcohol Use History: None Reported Past Drug Use History: None Reported - Past Family History Father Family Medical History: Diabetes Mellitus, Hypertension Sister(s) Family Medical History: Asthma General Exam - General Exam Comments Initial Comments: GENERAL: Patient is well-developed and well-nourished. Patient is nontoxic and in no acute distress. HEAD: Atraumatic, normocephalic. EYES: Pupils equal round and reactive to light, extraocular movements intact, sclera anicteric, conjunctiva are normal. Eyelids were unremarkable. ENT: TMs normal, nares patent, oropharynx clear without exudates. Moist mucous membranes. NECK: Normal range of motion, supple without lymphadenopathy or JVD. LUNGS: Unlabored respirations. Breath sounds clear to auscultation bilaterally and equal. No wheezes rales or rhonchi. Dry cough noted. HEART: Regular rate and rhythm without murmurs, rubs or gallops. ABDOMEN: Soft, nontender, normoactive bowel sounds. No guarding, no rebound. No masses appreciated. : Deferred MUSCULOSKELETAL: Normal extremities with adequate strength and normal range of motion, no pitting or edema. No clubbing or cyanosis. NEUROLOGICAL: Patient is alert and oriented x 3. Normal speech, normal gait. PSYCH: Normal mood, normal affect. SKIN: Warm, Dry, normal turgor, no rashes or lesions noted. Limitations: no limitations Course Vital Signs 03/06/21 03/06/21 03/06/21 19:35 20:20 20:28 Temperature 98.5 F Pulse Rate 106 H 86 Respiratory 18 20 20 Rate Blood Pressure 129/86 O2 Sat by Pulse 97 100 Oximetry Medical Decision Making - Medical Decision Making Patient is a 20-year-old female, currently 16 weeks , presenting with cough, upper respiratory type symptoms for the last 3 days. She's been having some nausea and vomiting when she coughs a lot and started having headache, she was concerned for dehydration. Her vital signs are stable. No acute findings on physical exam except for a dry cough. Chest XR 2 days ago which showed no acute findings. Patient was given some fluids and Zofran today, her swab is positive for RSV, negative for flu and covid. Patient is resting comfortably, no chest pain or shortness of breath. I discussed these findings with her. She is to continue [id number]-[id number] medications for her symptoms, she has a at home nebulizer she has been using as well as Tylenol, Robitussin. She can follow up with her SPECIAL PROGRAMS DIRECTOR. She is agreeable to this plan of care and is stable for discharge. Case discussed with Dr. bowie. - Lab Data Lab Results 03/06/21 Range/Units 20:13 Influenza Type A (PCR) Not Detected (Not Detectd) Influenza Type B (PCR) Not Detected (Not Detectd) RSV (PCR) Detected A (Not Detectd) SARS-CoV-2 (PCR) Not Detected (Not Detectd) Disposition Clinical Impression: Viral infection, RSV infection Disposition: HOME SELF-CARE Condition: Stable Instructions (If sedation given, give patient instructions): Upper Respiratory Infection (ED) Additional Instructions: Please return to the Emergency Department if symptoms worsen or any other concerns. Continue using at home nebulizer for cough. Recommend Tylenol for any discomfort. Please follow-up with your SPECIAL PROGRAMS DIRECTOR as discussed. Is patient prescribed a controlled substance at d/c from ED?: No Referrals: Barbi Flores MD [Primary Care Provider] - 1-2 days Blanca Perez DO [Doctor of Osteopathic Medicine] - 1-2 days Time of Disposition: 21:57
[2021-03-06 20:36] VITALS: RESP 20
[2021-03-06 22:18] VITALS: BP 127/84; PULSE 81; TEMP 98.4
== END 2021-03-06 22:17 | disposition home or self-care (01) ==
LOC: EC 19:24
DX: O99.512 Diseases of the respiratory system complicating pregnancy, second trimester (principal); O98.512 Other viral diseases complicating pregnancy, second trimester; O26.892 Other specified pregnancy related conditions, second trimester; B97.4 Respiratory syncytial virus as the cause of diseases classified elsewhere; R51.9 Headache, unspecified; J45.909 Unspecified asthma, uncomplicated; Z3A.16 16 weeks gestation of pregnancy; Z20.822 Contact with and (suspected) exposure to COVID-19
CPT/HCPCS: 87636; 99284; 96374; 96361; J2405

== ENCOUNTER 2021-06-24 10:52 | Outpatient (CLI) | payer OTHER ==
[2021-06-24 11:29] VITALS: BP 105/59; PULSE 106; RESP 20; TEMP 97.3
[2021-06-24 11:29] LABS: Appearance,Urine Cloudy (Clear); Bacteria,Urine Occasional /hpf; Bilirubin,Urine 2+ (Negative); Blood,Urine Negative (Negative); Color,Urine Dark Brown; Glucose,Urine (UA) Negative (Negative); Hyaline Casts,Urine 44 /lpf (0-2); Ketones,Urine Trace (Negative); Leukocyte Esterase,Urine Moderate (Negative); Mucus,Urine Many /hpf; Nitrite,Urine Negative (Negative); PH, Urine 6.5 (5.0-8.0); Protein,Urine 1+ (Negative); RBC,Urine 3 /hpf (0-5); Specific Gravity,Urine 1.027 (1.001-1.035); Squamous Epithelial Cell,Urine 15 /hpf (0-4); WBC,Urine 35 /hpf (0-5)
[2021-06-24 11:55] LABS: ALT 158 U/L (4-34); AST 74 U/L (14-36); African American GFR (CKD) >90 (>60 ml/min/1.73 sqM); Blood Urea Nitrogen 6 mg/dL (7-17); LDH 350 U/L (313-618); Non-African American GFR(CKD) >90 (>60 ml/min/1.73 sqM); Uric Acid 3.9 mg/dL (3.7-7.4)
[2021-06-24 12:35] LABS: Creatinine,Urine Random 529.7 mg/dL; Protein/Creatinine Ratio,Urine 0.053
--- NOTE | 2021-06-24 12:41 | P.PN ---
Progress Note - Text Progress Note Date: 06/24/21 Margarita is seen and evaluated in labor and delivery. Her liver enzymes are actually stable and slightly lower than they were approximately 5 days ago. She does have cholestasis of based on increased levels of bile salts. A prescription for Actigall is 40 to the pharmacy she'll take 3 her milligrams twice daily. I advised her that she is to call the office on Monday should she can be seen on Monday by Dr. Perez she will need twice weekly nonstress tests and ultrasounds to monitor growth the remainder of the pre-clamped labs are normal and she denies any signs or symptoms of . Her only complaint is itching which has now spread be on the hands and is essentially global. Hopefully we Actmayraall will help with this. I was not specifically worried about preeclampsia with her but with elevated liver enzymes a little above what I would normally expect from cholestasis it was necessary to at least have a baseline. All the questions are answered for her and a brief description of cholestasis was given with to her and she will again follow up with Dr. Perez on Monday or Monday.
[2021-06-24 13:03] LABS: Basophils % (A) 0 %; Eosinophils # (A) 0.1 k/uL (0-0.7); Eosinophils % (A) 1 %; HGB 12.1 gm/dL (11.4-16.0); Lymphocytes # (A) 1.8 k/uL (1.0-4.8); Lymphocytes % (A) 17 %; MCHC 33.7 g/dL (31.0-37.0); MCV 86.1 fL (80.0-100.0); Mean Platelet Volume 9.5; Monocytes # (A) 0.4 k/uL (0-1.0); Monocytes % (A) 3 %; Neutrophils # (A) 8.2 k/uL (1.3-7.7); Neutrophils % (A) 78 %; Platelet Count 334 k/uL (150-450); RBC 4.18 m/uL (3.80-5.40); RDW 13.3 % (11.5-15.5); WBC 10.6 k/uL (3.8-10.6)
== END 2021-06-24 12:39 | disposition home or self-care (01) ==
LOC: FBPOP 10:52
PROVIDERS: ATTEND Obstetrics & Gynecology
DX: O26.613 Liver and biliary tract disorders in pregnancy, third trimester (principal); K83.1 Obstruction of bile duct; Z3A.32 32 weeks gestation of pregnancy
CPT/HCPCS: 59025; 82570; 84156; 82565; 83615; 84450; 84460; 84520; 84550; 85025; 81001; G0463; 99213

== ENCOUNTER 2021-08-03 05:56 | Inpatient (IN) | payer OTHER ==
[2021-08-03] MEDS: LACTATED RINGERS 1,000 ML IV SCH ×4 (06:15→19:45)
[2021-08-03] MEDS ORDERED: LIDOCAINE 1% (PF) 10 MG/ML (30 ML SDV) SQ PRN (06:18)
[2021-08-03] MEDS ORDERED: METHYLERGONOVINE 0.2 MG/ML 1 ML AMP IM PRN (06:18)
[2021-08-03] MEDS ORDERED: CARBOPROST TROMETHAMINE 250 MCG/ML 1 ML AMP IM PRN (06:18)
[2021-08-03] MEDS ORDERED: TERBUTALINE 1 MG/ML VIAL SQ PRN (06:18)
[2021-08-03] MEDS ORDERED: OXYTOCIN 10 UNIT/ML 1 ML VIAL IM PRN (06:18)
[2021-08-03] MEDS ORDERED: OXYTOCIN 30 UNITS/500 ML NS 30 UNIT in SALINE 1 500ML.BAG IV SCH (06:30)
[2021-08-03 06:34] LABS: Basophils % (A) 0 %; Eosinophils # (A) 0.1 k/uL (0-0.7); Eosinophils % (A) 1 %; HCT 37.2 % (34.0-46.0); HGB 12.4 gm/dL (11.4-16.0); Lymphocytes # (A) 2.1 k/uL (1.0-4.8); Lymphocytes % (A) 26 %; MCH 28.5 pg (25.0-35.0); MCHC 33.2 g/dL (31.0-37.0); MCV 85.8 fL (80.0-100.0); Mean Platelet Volume 8.1; Monocytes # (A) 0.3 k/uL (0-1.0); Monocytes % (A) 4 %; Neutrophils # (A) 5.7 k/uL (1.3-7.7); Neutrophils % (A) 68 %; Platelet Count 373 k/uL (150-450); RBC 4.34 m/uL (3.80-5.40); RDW 14.7 % (11.5-15.5); WBC 8.3 k/uL (3.8-10.6)
--- NOTE | 2021-08-03 08:12 | P.HPOB ---
History of Present Illness H&P Date: 08/03/21 Chief Complaint: cholestasis of , induction of labor 20-year-old presents at 37 weeks and 6 days for induction of labor due to cholestasis of . Her cervix is 3 cm dilated, 80% effaced, -1 station. She is lora irregularly. heart tones are 130 with moderate variability and reactive. Review of Systems All systems: negative Constitutional: Denies chills, Denies fever Eyes: denies blurred vision, denies pain Ears, nose, mouth and throat: Denies headache, Denies sore throat Cardiovascular: Denies chest pain, Denies shortness of breath Respiratory: Denies cough Gastrointestinal: Denies abdominal pain, Denies diarrhea, Denies nausea, Denies vomiting Genitourinary: Denies dysuria, Denies hematuria Musculoskeletal: Denies myalgias Integumentary: Denies pruritus, Denies rash Neurological: Denies numbness, Denies weakness Psychiatric: Denies anxiety, Denies depression Endocrine: Denies fatigue, Denies weight change Past Medical History Past Medical History: Asthma, GERD/Reflux Additional Past Medical History / Comment(s): Cholestasis History of Any Multi-Drug Resistant Organisms: None Reported Past Surgical History: Appendectomy, Cholecystectomy Past Anesthesia/Blood Transfusion Reactions: No Reported Reaction Past Psychological History: Anxiety Smoking Status: Never smoker Past Alcohol Use History: None Reported Past Drug Use History: None Reported - Past Family History Father Family Medical History: Diabetes Mellitus, Hypertension Sister(s) Family Medical History: Asthma Medications and Allergies Home Medications Medication Instructions Recorded Confirmed Type Kgp-Dmsu-Yfhqo Acid 1 cap PO DAILY 03/06/21 08/03/21 History [-U Capsule (formulary)] ursodioL [Ursodiol] 300 mg PO BID 08/03/21 08/03/21 History Allergies Allergy/AdvReac Type Severity Reaction Status Date / Time No Known Allergies Allergy Verified 08/03/21 06:12 Exam Osteopathic Statement: *. No significant issues noted on an osteopathic structural exam other than those noted in the History and Physical/Consult. Vital Signs Temp Pulse Resp BP Pulse Ox 08/03/21 06:12 97.5 F L 109 H 16 136/83 98 Intake and Output 08/02/21 08/03/21 08/03/21 22:59 06:59 14:59 Other: Weight 95.708 kg Heart: Regular rate and rhythm Lungs: Clear to auscultation bilaterally Abdomen: Soft, nontender Extremities: Negative Homans sign Results Result Diagrams: 08/03/21 06:15 Assessment and Plan (1) Cholestasis during in third trimester Current Visit: Yes Status: Acute Code(s): O26.613 - LIVER AND BILIARY TRACT DISORD IN , THIRD TRIMESTER; K83.1 - OBSTRUCTION OF BILE DUCT SNOMED Code(s): 596133949 (2) 37 weeks gestation of Current Visit: Yes Status: Acute Code(s): Z3A.37 - 37 WEEKS GESTATION OF SNOMED Code(s): 97568567 Plan: 1. Induction of labor with amniotomy with Pitocin 2. Anticipate normal vaginal delivery
[2021-08-03] MEDS ORDERED: ROPIVACAINE 100 MG, fentaNYL (PF). 200 MCG in SODIUM CHLORIDE 0.9% 76 ML EPIDURAL ONE (13:18)
[2021-08-03] MEDS ORDERED: CITRIC ACID-SODIUM CITRATE 15 ML CUP PO ONE (18:35)
[2021-08-03] MEDS ORDERED: MORPHINE SULFATE (PF) 0.3 MG/0.3 ML SYR ONE (18:45)
[2021-08-03] MEDS ORDERED: ceFAZolin 1,000 MG VIAL ONE (18:45)
[2021-08-03] MEDS ORDERED: KETOROLAC 15 MG/ML 1 ML VIAL ONE (18:45)
[2021-08-03] MEDS ORDERED: OXYTOCIN 30 UNITS/500 ML NS BAG IV ONE (18:45)
[2021-08-03] MEDS ORDERED: ONDANSETRON 4 MG/2 ML VIAL ONE (18:45)
[2021-08-03] MEDS ORDERED: NALBUPHINE 10 MG/ML (1 ML AMP) ONE (18:45)
[2021-08-03] MEDS ORDERED: SODIUM CHLORIDE 0.9% 100 ML BAG ONE (18:45)
[2021-08-03] MEDS ORDERED: METHYLERGONOVINE 0.2 MG/ML 1 ML AMP ONE (18:45)
[2021-08-03] MEDS ORDERED: NALOXONE 0.4 MG/ML 1 ML VIAL IV PRN (19:22)
[2021-08-03] MEDS ORDERED: diphenhydrAMINE 25 MG CAP PO PRN (19:22)
[2021-08-03] MEDS ORDERED: ZOLPIDEM 5 MG TAB PO PRN (19:22)
[2021-08-03] MEDS ORDERED: SIMETHICONE 80 MG CHEWABLE PO PRN (19:22)
[2021-08-03] MEDS ORDERED: LANOLIN CREAM 5 GM TUBE TOPICAL PRN (19:22)
[2021-08-03] MEDS ORDERED: METOCLOPRAMIDE 5 MG/ML 2 ML VIAL IVP PRN (19:22)
[2021-08-03] MEDS ORDERED: ONDANSETRON 4 MG/2 ML VIAL IVP PRN (19:22)
[2021-08-03] MEDS ORDERED: diphenhydrAMINE 50 MG/ML 1 ML VIAL IVP PRN ×2 (19:22)
[2021-08-03] MEDS ORDERED: diphenhydrAMINE 50 MG CAP PO PRN (19:22)
[2021-08-03] MEDS: SENNOSIDES-DOCUSATE SODIUM 1 EACH TAB PO SCH (21:09)
[2021-08-03] MEDS: ACETAMINOPHEN TAB 500 MG TAB PO SCH (21:31)
[2021-08-04] MEDS: KETOROLAC 30 MG/ML 1 ML VIAL IVP SCH ×2 (01:10→11:13)
[2021-08-04] MEDS: LACTATED RINGERS 1,000 ML IV SCH ×2 (01:11→20:37)
[2021-08-04] MEDS: ACETAMINOPHEN TAB 500 MG TAB PO SCH ×4 (04:14→23:55)
[2021-08-04 05:57] LABS: Basophils % (A) 0 %; Eosinophils # (A) 0.1 k/uL (0-0.7); Eosinophils % (A) 1 %; HCT 32.1 % (34.0-46.0); HGB 10.7 gm/dL (11.4-16.0); Lymphocytes # (A) 1.4 k/uL (1.0-4.8); Lymphocytes % (A) 14 %; MCH 29.7 pg (25.0-35.0); MCHC 33.5 g/dL (31.0-37.0); MCV 88.9 fL (80.0-100.0); Mean Platelet Volume 8.3; Monocytes # (A) 0.4 k/uL (0-1.0); Monocytes % (A) 4 %; Neutrophils # (A) 7.6 k/uL (1.3-7.7); Neutrophils % (A) 80 %; Platelet Count 293 k/uL (150-450); RBC 3.61 m/uL (3.80-5.40); RDW 14.8 % (11.5-15.5); WBC 9.5 k/uL (3.8-10.6)
[2021-08-04] MEDS ORDERED: NALOXONE 0.4 MG/ML 1 ML VIAL IV PRN (06:22)
--- NOTE | 2021-08-04 06:25 | P.PN ---
Progress Note - Text Progress Note Date: 08/04/21 Ms. Perkins is a 20 -year-old female had a history of under epidural. Patient received Astramorph 3g 2 epidural for postoperative pain control. Today patient is comfortable sitting in her bed. Today patient rated her pain level 3 out of 10 in severity. Denied any fever, drowsiness, confusion. Denied any weakness, tingling sensation in her lower extremities. Denied any bowel or bladder problems. Moving all extremities without any difficulty, and able to walk without any difficulties. Denied any itching. Vitals: Hemodynamically stable Continue oral pain medication as per primary team. No complications related to anesthesia.
--- NOTE | 2021-08-04 08:19 | P.OP ---
Date of Procedure: 08/03/21 Preoperative Diagnosis: 1. at 37 weeks 6 days 2. Cholestasis of 3. Labor dystociaarrest of dilatation for over 6 hours Postoperative Diagnosis: 1. at 37 weeks 6 days 2. Cholestasis of 3. Labor dystociaarrest of dilatation for over 6 hours Procedure(s) Performed: Primary low transverse Anesthesia: epidural Surgeon: Blanca Perez Director Women #1: Dung Vicotria Estimated Blood Loss (ml): 300 IV fluids (ml): 500 Urine output (ml): 200 Pathology: none sent Condition: stable Disposition: floor Indications for Procedure: 20-year-old presented at 37 weeks and 6 days for induction of labor due to cholestasis of . Her cervix is 3 cm dilated, 80% effaced, -1 station. She was lora irregularly. heart tones 130 with moderate variabi lity and reactive. Induction started with Pitocin. Amniotomy was performed at 7:13 AM and clear fluid noted. Around 11 AM she was 5 cm dilated, 90% effaced, and -1 station. She got an epidural and was continuing to contract every 2 minutes. Pitocin was increased per protocol. Patient went to position changes and Pitocin augmentation most of the day. By 6:15 PM patient was still 5 cm dilated, 90% effaced, -1 station. She had not made any cervical change in over 6 hours despite adequate contractions. The baby still had category 1 heart tones and there was no sign of maternal fever. Through shared decision-making, the decision was made to perform a primary low transverse . Operative Findings: Viable male, Apgars 8, 9, weight 6 lbs. 6 oz. Normal uterus, tubes, ovaries. There was a small amount of sigmoid: Attached to the posterior and left side wall of the uterus. The left round ligament appeared rudimentary. Description of Procedure: Patient was taken to the operating room where epidural anesthesia was found be adequate. She was prepped and draped in normal sterile fashion in dorsal supine position with a leftward tilt. Pfannenstiel skin incision was made the scalpel and carried through to the underlying layer of fascia with the scalpel. Fascia was incised in midline and carried bilaterally with the Arredondo scissors. The superior aspect of the fascial incision was grasped with Sumner clamps elevated and the underlying rectus muscles dissected off with the Arredondo's. Attention was then turned to inferior aspect of same incision which in a similar fashion was grasped tented up and the underlying rectus muscles dissected off with the Arredondo's. The rectus muscles were the midline and the peritoneum was identified tented up and entered sharply with the scalpel. The incision was extended superiorly and inferiorly with good visualization of the bladder. The bladder blade was inserted and the vesicouterine peritoneum was incised the Metzenbaums then carried bilaterally and bladder flap created digitally. A low transverse incision was then made on the uterus with the scalpel. This was carried bilaterally and digital manner. 's head delivered atraumatically, nose and mouth bulb suctioned, cord clamped and cut, handed off to waiting nurses. Apgars 8,9, weight 6 lbs. 6 oz. Placenta delivered manually, intact with three-vessel cord. The uterus is exteriorized and cleared of all clots and debris. The uterine incision was closed with 0 Vicryl in a running locked fashion. Second layer of the same sutures used in imbricating fashion to obtain excellent hemostasis. Bladder flap was then reapproximated using 2-0 Vicryl in a running fashion. Both ovaries and tubes appeared normal. There was a small amount of sigmoid colon attached to the left posterior sidewall of the uterus. The left round ligament appeared rudimentary. The uterus was placed back into the abdomen. The peritoneum was reapproximated using 2-0 Vicryl in a running fashion. The muscles were reapproximated using 2-0 Vicryl in interrupted fashion. The fascia was reapproximated using 0 Vicryl in a running fashion. The subcutaneous tissues closed with 3-0 Vicryl running fashion. The skin was closed ariel. Patient tolerated the procedure well, sponge and instrument counts were correct times 2 and she was taken to the recovery room in stable condition.
--- NOTE | 2021-08-04 08:20 | P.PNOBGPC ---
Subjective - Subjective Principal diagnosis: Status post primary low transverse postop day #1 Interval history: Patient seen and examined. Denies nausea, vomiting, chest pain, shortness of breath or any calf pain. Patient reports: Reports appetite normal, Reports voiding normally, Reports pain well controlled, Reports ambulating normally : doing well Objective - Vital Signs Latest vital signs: Vital Signs Temp Pulse Resp BP Pulse Ox 08/04/21 04:00 98.4 F 90 16 105/61 97 08/03/21 23:19 98.1 F 92 16 124/68 97 08/03/21 21:28 98.6 F 83 16 115/65 97 08/03/21 20:58 98.5 F 85 16 120/67 98 08/03/21 20:28 98.3 F 88 16 118/73 100 08/03/21 20:13 98.2 F 89 16 116/68 100 08/03/21 19:58 97.5 F L 92 16 121/72 99 08/03/21 19:43 97.7 F 93 16 117/64 100 08/03/21 19:28 97.6 F 97 16 110/57 100 Intake and Output 08/03/21 08/04/21 08/04/21 22:59 06:59 14:59 Intake Total 25.367 Output Total 150 250 Balance -124.633 -250 Intake: Intake, IV Titration 25.367 Amount Oxytocin 30 Units/500 ml 25.367 Ns 30 unit In Saline 1 500ml.bag @ Per Protocol IV .Q0M [facility] Rx#:[id number] Output: Urine 150 250 Other: # Voids 0 - Exam Lungs: bilateral: normal Chest: Normal S1, Normal S2 Extremities: Present: normal Abdomen: Present: normal appearance, soft. Absent: distention, tenderness Incision: Present: normal, dry, intact Uterus: Present: normal, firm - Labs Labs: Abnormal Lab Results - Last 24 Hours (Table) 08/04/21 Range/Units 05:28 RBC 3.61 L (3.80-5.40) m/uL Hgb 10.7 L (11.4-16.0) gm/dL Hct 32.1 L (34.0-46.0) % Assessment and Plan (1) Cholestasis during in third trimester Current Visit: Yes Status: Resolved Code(s): O26.613 - LIVER AND BILIARY TRACT DISORD IN , THIRD TRIMESTER; K83.1 - OBSTRUCTION OF BILE DUCT SNOMED Code(s): 118144858 (2) 37 weeks gestation of Current Visit: Yes Status: Resolved Code(s): Z3A.37 - 37 WEEKS GESTATION OF SNOMED Code(s): 55842914 (3) Status post primary low transverse section Current Visit: Yes Status: Acute Code(s): Z98.891 - HISTORY OF UTERINE SCAR FROM PREVIOUS SURGERY SNOMED Code(s): 752176829 (4) Cholestasis of affecting childbirth Current Visit: Yes Status: Acute Code(s): O26.62 - LIVER AND BILIARY TRACT DISORDERS IN CHILDBIRTH; K83.1 - OBSTRUCTION OF BILE DUCT SNOMED Code(s): 78044042814971446 Plan: 1. Continue postoperative care 2. Oral pain medication 3. Regular diet
[2021-08-04] MEDS: IBUPROFEN 600 MG TAB PO SCH ×3 (09:00→21:47)
[2021-08-04] MEDS: SENNOSIDES-DOCUSATE SODIUM 1 EACH TAB PO SCH ×2 (09:01→20:37)
[2021-08-05] MEDS: IBUPROFEN 600 MG TAB PO SCH ×3 (02:52→16:52)
[2021-08-05] MEDS: ACETAMINOPHEN TAB 500 MG TAB PO SCH ×4 (05:26→20:53)
[2021-08-05] MEDS: SENNOSIDES-DOCUSATE SODIUM 1 EACH TAB PO SCH ×2 (08:54→20:54)
--- NOTE | 2021-08-05 11:43 | P.PNOBGPC ---
Subjective - Subjective Principal diagnosis: Status post primary low transverse postop day #2 Interval history: Patient seen and examined. Denies nausea, vomiting, chest pain, shortness of breath or any calf pain. Patient reports: Reports appetite normal, Reports voiding normally, Reports pain well controlled, Reports ambulating normally : doing well Objective - Vital Signs Latest vital signs: Vital Signs Temp Pulse Resp BP Pulse Ox 08/05/21 08:00 98.1 F 90 16 102/66 08/05/21 00:00 98.7 F 92 16 105/64 08/04/21 20:00 98.0 F 101 H 16 120/61 08/04/21 16:00 98.0 F 75 16 118/68 08/04/21 12:00 98.0 F 58 L 16 118/72 99 Intake and Output 08/04/21 08/05/21 08/05/21 22:59 06:59 14:59 Output Total 500 Balance -500 Output: Urine 500 Other: # Voids 1 1 - Exam Lungs: bilateral: normal Chest: Normal S1, Normal S2 Extremities: Present: normal Abdomen: Present: normal appearance, soft. Absent: distention, tenderness Incision: Present: normal, dry, intact Uterus: Present: normal, firm Assessment and Plan (1) Cholestasis during in third trimester Current Visit: Yes Status: Resolved Code(s): O26.613 - LIVER AND BILIARY TRACT DISORD IN , THIRD TRIMESTER; K83.1 - OBSTRUCTION OF BILE DUCT SNOMED Code(s): 235179607 (2) 37 weeks gestation of Current Visit: Yes Status: Resolved Code(s): Z3A.37 - 37 WEEKS GESTATION OF SNOMED Code(s): 26337983 (3) Status post primary low transverse section Current Visit: Yes Status: Acute Code(s): Z98.891 - HISTORY OF UTERINE SCAR FROM PREVIOUS SURGERY SNOMED Code(s): 687117159 (4) Cholestasis of affecting childbirth Current Visit: Yes Status: Acute Code(s): O26.62 - LIVER AND BILIARY TRACT DISORDERS IN CHILDBIRTH; K83.1 - OBSTRUCTION OF BILE DUCT SNOMED Code(s): 42356256580103471 Plan: 1. Continue pain control 2. Increase ambulation
[2021-08-06 01:48] VITALS: RESP 16
[2021-08-06] MEDS: IBUPROFEN 600 MG TAB PO SCH ×3 (01:52→15:16)
[2021-08-06] MEDS: ACETAMINOPHEN TAB 500 MG TAB PO SCH ×3 (06:25→12:58)
--- NOTE | 2021-08-06 07:50 | P.DS ---
Providers Date of admission: 08/03/21 05:56 Expected date of discharge: 08/06/21 Attending physician: Blanca Perez Primary care physician: Stated None - Discharge Diagnosis(es) (1) Cholestasis during in third trimester Current Visit: Yes Status: Resolved (2) 37 weeks gestation of Current Visit: Yes Status: Resolved (3) Status post primary low transverse section Current Visit: Yes Status: Acute (4) Cholestasis of affecting childbirth Current Visit: Yes Status: Acute Hospital Course: Patient presented at 37 weeks and 6 days for induction of labor due to cholestasis of . She underwent a primary low transverse for labor dystocia. Post operative course was uncomplicated. She denies nausea, vomiting, chest pain, shortness of breath or any calf pain. Her incision is clean, dry, intact. Patient will be discharged home postoperative day #3 in stable condition to follow-up with me in one week. Plan - Discharge Summary Discharge Rx Participant: No New Discharge Prescriptions: New Ibuprofen [Motrin] 600 mg PO Q6HR #40 tab oxyCODONE HCL [OxyIR] 5 mg PO Q6HR PRN #12 tab PRN Reason: Pain No Action Ymy-Qlxe-Uucry Acid [-U Capsule (formulary)] 1 cap PO DAILY ursodioL [Ursodiol] 300 mg PO BID Discharge Medication List Duv-Wpfd-Svnzc Acid [-U Capsule (formulary)] 1 cap PO DAILY 03/06/21 [History] ursodioL [Ursodiol] 300 mg PO BID 08/03/21 [History] Ibuprofen [Motrin] 600 mg PO Q6HR #40 tab 08/06/21 [Rx] oxyCODONE HCL [OxyIR] 5 mg PO Q6HR PRN #12 tab 08/06/21 [Rx] Follow up Appointment(s)/Referral(s): Blanca Perez DO [Doctor of Osteopathic Medicine] - 09/15/21 10:45 am Discharge Disposition: HOME SELF-CARE
[2021-08-06] MEDS: SENNOSIDES-DOCUSATE SODIUM 1 EACH TAB PO SCH (08:39)
[2021-08-06 15:21] VITALS: BP 124/82; PULSE 99; TEMP 97.9
== END 2021-08-06 17:40 | disposition home or self-care (01) | DRG 786 ==
LOC: 4FBP 05:56
PROVIDERS: ADMIT Obstetrics & Gynecology; ATTEND Obstetrics & Gynecology
PROC: 4A0HXCZ Measurement of Products of Conception, Cardiac Rate, External Approach (ICD-10-PCS; 2021-08-03)
PROC: 10907ZC Drainage of Amniotic Fluid, Therapeutic from Products of Conception, Via Natural or Artificial Opening (ICD-10-PCS; 2021-08-03)
PROC: 3E033VJ Introduction of Other Hormone into Peripheral Vein, Percutaneous Approach (ICD-10-PCS; 2021-08-03)
PROC: 10D00Z1 Extraction of Products of Conception, Low, Open Approach (ICD-10-PCS; principal; 2021-08-03 18:45)
DX: O26.62 Liver and biliary tract disorders in childbirth (principal); K83.1 Obstruction of bile duct; F41.9 Anxiety disorder, unspecified; O99.62 Diseases of the digestive system complicating childbirth; K21.9 Gastro-esophageal reflux disease without esophagitis; O62.0 Primary inadequate contractions; J45.909 Unspecified asthma, uncomplicated; O99.344 Other mental disorders complicating childbirth; O99.52 Diseases of the respiratory system complicating childbirth; Z37.0 Single live birth; Z3A.37 37 weeks gestation of pregnancy; Z90.49 Acquired absence of other specified parts of digestive tract
CPT/HCPCS: 85025; 86850; 86900; 86901

== ENCOUNTER 2021-08-08 19:13 | Emergency (ER) | payer OTHER ==
[2021-08-08] MEDS ORDERED: ACETAMINOPHEN TAB 500 MG TAB PO STA (19:33)
[2021-08-08 20:09] VITALS: RESP 20; TEMP 101
--- NOTE | 2021-08-08 20:09 | ED ---
General Adult HPI - General Chief complaint: Fever Stated complaint: Fever Time Seen by Provider: 08/08/21 19:21 Source: patient - History of Present Illness Initial comments: 20 year-old female patient presents for fever and headache that started today. States that fever was as high as 102 degrees at home. She has been taking tylenol and motrin throughout the day. Denies any discharge or drainage from the incision site. States one side of the incision does feel swollen. Denies increased pain to the abdomen. She did pass some small blood clots today, denies any odorous discharge. Denies any upper respiratory symptoms. Denies dysuria, urinary urgency, or frequency. Denies any diarrhea. Patient denies any recent rash, cough, shortness of breath, chest pain, nausea, vomiting, constipation, back pain, numbness, tingling, dizziness, weakness, visual changes, or any other complaints. - Related Data Home Medications Medication Instructions Recorded Confirmed Unq-Rjmp-Vogbu Acid 1 cap PO DAILY 03/06/21 08/08/21 [-U Capsule (formulary)] ursodioL [Ursodiol] 300 mg PO BID 08/03/21 08/08/21 Ibuprofen [Motrin] 600 mg PO Q6H 08/08/21 08/08/21 Previous Rx's Medication Instructions Recorded oxyCODONE HCL [OxyIR] 5 mg PO Q6HR PRN #12 tab 08/06/21 Sulfamethoxazole/Trimethoprim 1 each PO BID #20 tablet 08/08/21 [Bactrim DS 800-160 mg] Allergies Allergy/AdvReac Type Severity Reaction Status Date / Time No Known Allergies Allergy Verified 08/08/21 20:17 Review of Systems ROS Statement: Those systems with pertinent positive or pertinent negative responses have been documented in the HPI. ROS Other: All systems not noted in ROS Statement are negative. Past Medical History Past Medical History: Asthma, GERD/Reflux Additional Past Medical History / Comment(s): Cholestasis History of Any Multi-Drug Resistant Organisms: None Reported Past Surgical History: Appendectomy, Cholecystectomy Past Anesthesia/Blood Transfusion Reactions: No Reported Reaction Past Psychological History: Anxiety Smoking Status: Never smoker Past Alcohol Use History: None Reported Past Drug Use History: None Reported - Past Family History Father Family Medical History: Diabetes Mellitus, Hypertension Sister(s) Family Medical History: Asthma General Exam General appearance: alert, in no apparent distress, other (This is a well- developed, well-nourished adult female patient in no acute distress.) Respiratory exam: Present: normal lung sounds bilaterally. Absent: respiratory distress, wheezes, rales, rhonchi, stridor Cardiovascular Exam: Present: normal rhythm, tachycardia, normal heart sounds. Absent: systolic murmur, diastolic murmur, rubs, gallop, clicks GI/Abdominal exam: Present: soft, normal bowel sounds, other (There is suprapubic incision there is some mild surrounding erythema, no drainage, there is firmness noted to the left lateral aspect of the incision.). Absent: distended, tenderness, guarding, rebound, rigid Neurological exam: Present: alert, oriented X3, CN II-XII intact Psychiatric exam: Present: normal affect, normal mood Skin exam: Present: warm, dry, intact, normal color. Absent: rash Course Vital Signs 08/08/21 08/08/21 19:17 19:33 Temperature 99.1 F 101.0 F H Pulse Rate 130 H 122 H Respiratory 18 20 Rate Blood Pressure 120/76 134/79 O2 Sat by Pulse 97 98 Oximetry Medical Decision Making - Medical Decision Making 20-year-old female patient presented to the emergency department today for evaluation of fever and headache. Temperature at home as her greatest 102F. Labs reviewed and did reveal white blood cell count 10.2. Hemoglobin is 10.6. Platelets 508. She'll have a potassium of 3.2. Urinalysis showed 21 white blood cells and rare bacteria. Protein is negative. Chest negative for COVID- 19. CT abdomen and pelvis was obtained and did show postsurgical changes no evidence for acute abnormalities or endometrial fluid collection. I did discuss the case with on-call INJECTION OPERATOR Dr. Bates. He was agreeable with discharge at this time. We will start Bactrim for possible carroll incisional cellulitis. Bactrim is considered safe with in full term infants without jaundice or G6PD deficiency...mother denies any of these conditions. She is instructed to follow-up with INJECTION OPERATOR for recheck as soon as possible. Return parameters were discussed in detail. She verbalizes understanding and agrees with this plan. My attending is Dr. Mcfadden. - Lab Data Result diagrams: 08/08/21 20:25 02/06/22 20:25 Lab Results 08/08/21 08/08/21 08/08/21 Range/Units 19:48 20:25 20:25 WBC 10.2 (3.8-10.6) k/uL RBC 3.70 L (3.80-5.40) m/uL Hgb 10.6 L (11.4-16.0) gm/dL Hct 32.8 L (34.0-46.0) % MCV 88.7 (80.0-100.0) fL MCH 28.6 (25.0-35.0) pg MCHC 32.2 (31.0-37.0) g/dL RDW 14.2 (11.5-15.5) % Plt Count 508 H (150-450) k/uL MPV 7.6 Neutrophils % 78 % Lymphocytes % 14 % Monocytes % 5 % Eosinophils % 1 % Basophils % 0 % Neutrophils # 8.0 H (1.3-7.7) k/uL Lymphocytes # 1.4 (1.0-4.8) k/uL Monocytes # 0.5 (0-1.0) k/uL Eosinophils # 0.1 (0-0.7) k/uL Basophils # 0.0 (0-0.2) k/uL PT 10.5 (9.0-12.0) sec INR 1.0 (<1.2) APTT 25.4 (22.0-30.0) sec Sodium (137-145) mmol/L Potassium (3.5-5.1) mmol/L Chloride (98-107) mmol/L Carbon Dioxide (22-30) mmol/L Anion Gap mmol/L BUN (7-17) mg/dL Creatinine (0.52-1.04) mg/dL Est GFR (CKD-EPI)AfAm (>60 ml/min/1.73 sqM) Est GFR (CKD-EPI)NonAf (>60 ml/min/1.73 sqM) Glucose (74-99) mg/dL Plasma Lactic Acid Romaine (0.7-2.0) mmol/L Calcium (8.4-10.2) mg/dL Total Bilirubin (0.2-1.3) mg/dL AST (14-36) U/L ALT (4-34) U/L Alkaline Phosphatase (38-126) U/L Total Protein (6.3-8.2) g/dL Albumin (3.5-5.0) g/dL Urine Color Urine Appearance (Clear) Urine pH (5.0-8.0) Ur Specific [place] (1.001-1.035) Urine Protein (Negative) Urine Glucose (UA) (Negative) Urine Ketones (Negative) Urine Blood (Negative) Urine Nitrite (Negative) Urine Bilirubin (Negative) Urine Urobilinogen (<2.0) mg/dL Ur Leukocyte Esterase (Negative) Urine RBC (0-5) /hpf Urine WBC (0-5) /hpf Ur Squamous Epith Cells (0-4) /hpf Urine Bacteria (None) /hpf Coronavirus (PCR) Not Detected (Not Detectd) 08/08/21 08/08/21 08/08/21 Range/Units 20:25 20:25 20:25 WBC (3.8-10.6) k/uL RBC (3.80-5.40) m/uL Hgb (11.4-16.0) gm/dL Hct (34.0-46.0) % MCV (80.0-100.0) fL MCH (25.0-35.0) pg MCHC (31.0-37.0) g/dL RDW (11.5-15.5) % Plt Count (150-450) k/uL MPV Neutrophils % % Lymphocytes % % Monocytes % % Eosinophils % % Basophils % % Neutrophils # (1.3-7.7) k/uL Lymphocytes # (1.0-4.8) k/uL Monocytes # (0-1.0) k/uL Eosinophils # (0-0.7) k/uL Basophils # (0-0.2) k/uL PT (9.0-12.0) sec INR (<1.2) APTT (22.0-30.0) sec Sodium 137 (137-145) mmol/L Potassium 3.2 L (3.5-5.1) mmol/L Chloride 108 H (98-107) mmol/L Carbon Dioxide 22 (22-30) mmol/L Anion Gap 7 mmol/L BUN 5 L (7-17) mg/dL Creatinine 0.52 (0.52-1.04) mg/dL Est GFR (CKD-EPI)AfAm >90 (>60 ml/min/1.73 sqM) Est GFR (CKD-EPI)NonAf >90 (>60 ml/min/1.73 sqM) Glucose 94 (74-99) mg/dL Plasma Lactic Acid Romaine 0.8 (0.7-2.0) mmol/L Calcium 8.0 L (8.4-10.2) mg/dL Total Bilirubin 0.5 (0.2-1.3) mg/dL AST 15 (14-36) U/L ALT 9 (4-34) U/L Alkaline Phosphatase 176 H (38-126) U/L Total Protein 5.1 L (6.3-8.2) g/dL Albumin 2.5 L (3.5-5.0) g/dL Urine Color Yellow Urine Appearance Clear (Clear) Urine pH 6.5 (5.0-8.0) Ur Specific [place] 1.009 (1.001-1.035) Urine Protein Negative (Negative) Urine Glucose (UA) Negative (Negative) Urine Ketones Negative (Negative) Urine Blood Large H (Negative) Urine Nitrite Negative (Negative) Urine Bilirubin Negative (Negative) Urine Urobilinogen <2.0 (<2.0) mg/dL Ur Leukocyte Esterase Moderate H (Negative) Urine RBC 2 (0-5) /hpf Urine WBC 21 H (0-5) /hpf Ur Squamous Epith Cells 2 (0-4) /hpf Urine Bacteria Rare H (None) /hpf Coronavirus (PCR) (Not Detectd) - Radiology Data Radiology results: report reviewed, image reviewed CT abdomen and pelvis with contrast was obtained. Report was reviewed in its entirety. Impression by Dr. Graff shows postsurgical changes from recent C- section with subcutaneous air bubbles a mild fat stranding. No drainable fluid collection. No endometrial significant fluid collection. Disposition Clinical Impression: Cellulitis, Fever Disposition: HOME SELF-CARE Condition: Good Instructions (If sedation given, give patient instructions): Cellulitis (ED), Fever in Adults (ED) Additional Instructions: Take antibiotic as directed. Follow-up with INJECTION OPERATOR for recheck as soon as possible. Return to the emergency department for any new, worsening, or concerning symptoms. Prescriptions: Sulfamethoxazole/Trimethoprim [Bactrim DS 800-160 mg] 1 each PO BID #20 tablet Is patient prescribed a controlled substance at d/c from ED?: No Referrals: Barbi Flores MD [Primary Care Provider] - 1-2 days Time of Disposition: 23:08
[2021-08-08] MEDS: SODIUM CHLORIDE 0.9% 500 ML 500 ML IV SCH ×2 (20:15→21:00)
[2021-08-08 20:57] LABS: Appearance,Urine Clear (Clear); Bacteria,Urine Rare /hpf; Bilirubin,Urine Negative (Negative); Blood,Urine Large (Negative); Color,Urine Yellow; Glucose,Urine (UA) Negative (Negative); Ketones,Urine Negative (Negative); Leukocyte Esterase,Urine Moderate (Negative); Nitrite,Urine Negative (Negative); PH, Urine 6.5 (5.0-8.0); Protein,Urine Negative (Negative); RBC,Urine 2 /hpf (0-5); Specific Gravity,Urine 1.009 (1.001-1.035); Squamous Epithelial Cell,Urine 2 /hpf (0-4); Urobilinogen,Urine <2.0 mg/dL (<2.0); WBC,Urine 21 /hpf (0-5)
[2021-08-08 21:22] LABS: Partial Thromboplastin Time 25.4 sec (22.0-30.0); Prothrombin Time 10.5 sec (9.0-12.0)
[2021-08-08 21:35] LABS: ALT 9 U/L (4-34); AST 15 U/L (14-36); African American GFR (CKD) >90 (>60 ml/min/1.73 sqM); Albumin 2.5 g/dL (3.5-5.0); Alkaline Phosphatase 176 U/L (38-126); Anion Gap 7 mmol/L; Blood Urea Nitrogen 5 mg/dL (7-17); Carbon Dioxide 22 mmol/L (22-30); Chloride 108 mmol/L (98-107); Glucose 94 mg/dL (74-99); Non-African American GFR(CKD) >90 (>60 ml/min/1.73 sqM); Potassium 3.2 mmol/L (3.5-5.1); Sodium 137 mmol/L (137-145); Total Bilirubin 0.5 mg/dL (0.2-1.3); Total Protein 5.1 g/dL (6.3-8.2)
[2021-08-08 21:37] LABS: Basophils % (A) 0 %; Eosinophils # (A) 0.1 k/uL (0-0.7); Eosinophils % (A) 1 %; HCT 32.8 % (34.0-46.0); HGB 10.6 gm/dL (11.4-16.0); Lymphocytes # (A) 1.4 k/uL (1.0-4.8); Lymphocytes % (A) 14 %; MCH 28.6 pg (25.0-35.0); MCHC 32.2 g/dL (31.0-37.0); MCV 88.7 fL (80.0-100.0); Mean Platelet Volume 7.6; Monocytes # (A) 0.5 k/uL (0-1.0); Monocytes % (A) 5 %; Neutrophils % (A) 78 %; Platelet Count 508 k/uL (150-450); RDW 14.2 % (11.5-15.5); WBC 10.2 k/uL (3.8-10.6)
[2021-08-08] MEDS ORDERED: POTASSIUM CHLORIDE ER 20 MEQ TAB.ER PO STA (21:54)
--- NOTE | 2021-08-08 22:24 | CT ---
EXAMINATION TYPE: CT abdomen pelvis w con DATE OF EXAM: 08/08/2021 COMPARISON: 05/31/2016 HISTORY: h/o 08/03/21, fever and incision swelling CT DLP: 1542.8 mGycm Automated exposure control for dose reduction was used. CONTRAST: Performed with IV Contrast, patient injected with 100 mL of Isovue 300. Images obtained from the diaphragm to the floor the pelvis with IV contrast. Lung bases are clear. There is no pleural effusion. Heart size is normal. There is no pericardial eff usion. Liver spleen pancreas and stomach appear intact. There are clips from cholecystectomy. The jesus e ducts are not dilated. There is no adrenal mass. Kidneys show satisfactory contrast opacification. There is no hydronephrosi s. Ureters are not dilated. There is no retroperitoneal adenopathy. Bladder distends smoothly. There is soft tissue air in the subcutaneous tissues over the lower anterior abdomen consistent with recent surgery. Uterus is enlarged with intraluminal air bubbles and consistent with recent . The lumbar vertebrae have fairly normal alignment. Disc spaces are normal. Posterior elements are int act. There is no compression fracture. There is no free fluid in the pelvis. Appendix not seen. No sign of thickened appendix. There is no e vidence of a bowel obstruction. There is no mesenteric edema. There is no evidence of free air. Delay ed images show normal renal excretion. IMPRESSION: Postsurgical changes from recent with subcutaneous air bubbles and mild fat stranding. No d rainable fluid collection. No endometrial significant fluid collection.
[2021-08-08] MEDS ORDERED: SULFAMETH-TMP DS STARTER PACK 2 TAB BTL PO STA (23:07)
[2021-08-08 23:48] VITALS: BP 118/74; PULSE 94
== END 2021-08-08 23:48 | disposition home or self-care (01) ==
LOC: EC 19:13
DX: L03.311 Cellulitis of abdominal wall (principal); J45.909 Unspecified asthma, uncomplicated; K21.9 Gastro-esophageal reflux disease without esophagitis; F41.9 Anxiety disorder, unspecified; Z79.899 Other long term (current) drug therapy; Z20.822 Contact with and (suspected) exposure to COVID-19
CPT/HCPCS: 36415; 80053; 83605; 85025; 85610; 85730; 81001; 87040; 87086; 87635; 74177; 99284; Q9967

== ENCOUNTER 2021-08-10 11:45 | Emergency (ER) | payer OTHER ==
[2021-08-10 12:02] VITALS: BP 124/78; PULSE 99; RESP 18; TEMP 98.4
[2021-08-10] MEDS ORDERED: CEPHALEXIN 500 MG CAP PO STA (13:38)
--- NOTE | 2021-08-10 13:38 | ED ---
General Adult HPI - General Chief complaint: Abdominal Pain Stated complaint: Post Op Complications Time Seen by Provider: 08/10/21 12:07 Source: patient, RN notes reviewed Mode of arrival: ambulatory Limitations: no limitations - History of Present Illness Initial comments: 20-year-old female presents to the emergency room for a chief complaint of inci hannah problem. Patient had a section 7 days ago. A few days ago she started to develop some fevers and had some induration around the incision site. She came to the emergency room and had blood work and a CAT scan performed. No acute abnormalities were noted. Today patient states it started draining yellow fluid from the incision site. States she tried to call on-call SKELP PROCESSOR but deci ded to come to the emergency room while waiting for a call back. Patient did take Bactrim which was prescribed from here.Patient has no other complaints at this time including shortness of breath, chest pain, abdominal pain, nausea or vomiting, headache, or visual changes. - Related Data Home Medications Medication Instructions Recorded Confirmed Hjh-Asor-Dwuqq Acid 1 cap PO DAILY 03/06/21 08/10/21 [-U Capsule (formulary)] Ibuprofen [Motrin] 600 mg PO Q6H 08/08/21 08/10/21 Sulfamethoxazole/Trimethoprim 1 tab PO BID 08/10/21 08/10/21 [Bactrim DS 800-160 mg] Allergies Allergy/AdvReac Type Severity Reaction Status Date / Time No Known Allergies Allergy Verified 08/10/21 13:23 Review of Systems ROS Statement: Those systems with pertinent positive or pertinent negative responses have been documented in the HPI. ROS Other: All systems not noted in ROS Statement are negative. Past Medical History Past Medical History: Asthma, GERD/Reflux Additional Past Medical History / Comment(s): Cholestasis History of Any Multi-Drug Resistant Organisms: None Reported Past Surgical History: Appendectomy, Cholecystectomy Past Anesthesia/Blood Transfusion Reactions: No Reported Reaction Past Psychological History: Anxiety Smoking Status: Never smoker Past Alcohol Use History: None Reported Past Drug Use History: None Reported - Past Family History Father Family Medical History: Diabetes Mellitus, Hypertension Sister(s) Family Medical History: Asthma General Exam Limitations: no limitations General appearance: alert, in no apparent distress Head exam: Present: atraumatic Eye exam: Present: normal appearance, PERRL, EOMI. Absent: scleral icterus, conjunctival injection ENT exam: Present: normal exam, mucous membranes moist Neck exam: Present: normal inspection, full ROM. Absent: tenderness Respiratory exam: Present: normal lung sounds bilaterally. Absent: respiratory distress, wheezes Cardiovascular Exam: Present: regular rate, normal rhythm, normal heart sounds GI/Abdominal exam: Present: soft, tenderness (Patient has mild tenderness around the incision site. She does have some induration. No significant erythema. There is serosanguineous drainage from a small pinpoint hole in the incision. There is no purulent drainage.), normal bowel sounds. Absent: distended Course Vital Signs 08/10/21 11:59 Temperature 98.4 F Pulse Rate 99 Respiratory 18 Rate Blood Pressure 124/78 O2 Sat by Pulse 98 Oximetry Medical Decision Making - Medical Decision Making Vitals are stable. Patient is afebrile. Laboratory evaluation was reviewed from 2 days ago, was unremarkable. CT abdomen and pelvis was also reviewed, did not show any abscess. On exam patient does have induration along the with serosanguineous drainage. There is no purulent drainage. There is a small pinpoint area where the drainage is coming from along the incision site. At this time patient has taken Bactrim. While in the ER she received a call back from her SKELP PROCESSOR who started her on Keflex instead of Bactrim. I did also speak with Dr. Khan who is on-call for Dr. Perez, she is okay with having patient seen tomorrow at her follow-up appointment. Patient will take the Keflex instead. Disposition Clinical Impression: Drainage from wound Disposition: HOME SELF-CARE Condition: Good Instructions (If sedation given, give patient instructions): Wound Infection (ED) Additional Instructions: Please follow up with your obgyn tomorrow. Continue Keflex. Return to the ER for any worsening symptoms. Is patient prescribed a controlled substance at d/c from ED?: No Referrals: Barbi Flores MD [Primary Care Provider] - 1-2 days Blanca Perez DO [Doctor of Osteopathic Medicine] - 1-2 days Time of Disposition: 13:39
== END 2021-08-10 14:13 | disposition home or self-care (01) ==
LOC: EC 11:45
DX: Z48.03 Encounter for change or removal of drains (principal); T88.9XXA Complication of surgical and medical care, unspecified, initial encounter; J45.909 Unspecified asthma, uncomplicated; F41.9 Anxiety disorder, unspecified
CPT/HCPCS: 99283

== ENCOUNTER 2022-04-11 13:42 | Emergency (ER) | payer OTHER ==
[2022-04-11 13:46] VITALS: BP 158/90; PULSE 105; RESP 20; TEMP 97.7
[2022-04-11] MEDS ORDERED: SODIUM CHLORIDE 0.9% 1,000 ML IV STA (17:58)
[2022-04-11] MEDS ORDERED: ONDANSETRON 4 MG/2 ML VIAL IVP STA (17:58)
[2022-04-11] MEDS ORDERED: ACETAMINOPHEN TAB 500 MG TAB PO STA (17:59)
[2022-04-11 18:29] LABS: Basophils % (A) 1 %; Eosinophils # (A) 0.2 k/uL (0-0.7); Eosinophils % (A) 3 %; HCT 35.2 % (34.0-46.0); HGB 11.6 gm/dL (11.4-16.0); Lymphocytes % (A) 25 %; MCV 78.9 fL (80.0-100.0); Mean Platelet Volume 8.9; Monocytes # (A) 0.3 k/uL (0-1.0); Monocytes % (A) 4 %; Neutrophils # (A) 5.4 k/uL (1.3-7.7); Neutrophils % (A) 66 %; Platelet Count 399 k/uL (150-450); RBC 4.46 m/uL (3.80-5.40); RDW 14.2 % (11.5-15.5); WBC 8.1 k/uL (3.8-10.6)
[2022-04-11 18:42] LABS: ALT 31 U/L (4-34); AST 22 U/L (14-36); African American GFR (CKD) >90 (>60 ml/min/1.73 sqM); Albumin 4.3 g/dL (3.5-5.0); Alkaline Phosphatase 127 U/L (38-126); Anion Gap 12 mmol/L; Blood Urea Nitrogen 11 mg/dL (7-17); Calcium 8.5 mg/dL (8.4-10.2); Carbon Dioxide 22 mmol/L (22-30); Chloride 104 mmol/L (98-107); Glucose 89 mg/dL (74-99); Lipase 50 U/L (23-300); Non-African American GFR(CKD) >90 (>60 ml/min/1.73 sqM); Sodium 138 mmol/L (137-145); Total Bilirubin 0.2 mg/dL (0.2-1.3); Total Protein 6.8 g/dL (6.3-8.2)
[2022-04-11 19:02] LABS: Appearance,Urine Clear (Clear); Bilirubin,Urine Negative (Negative); Blood,Urine Negative (Negative); Color,Urine Yellow; Glucose,Urine (UA) Negative (Negative); Ketones,Urine Negative (Negative); Leukocyte Esterase,Urine Negative (Negative); Nitrite,Urine Negative (Negative); PH, Urine 7.5 (5.0-8.0); Protein,Urine Trace (Negative); Specific Gravity,Urine 1.026 (1.001-1.035); Urobilinogen,Urine <2.0 mg/dL (<2.0)
[2022-04-11 19:25] LABS: HCG,Quantitative Serum 18598.7 mIU/mL
--- NOTE | 2022-04-11 20:12 | US ---
EXAMINATION TYPE: Transabdominal DATE OF EXAM: 04/11/2022 8:01 PM COMPARISON: NONE CLINICAL HISTORY: abdominal pain, spotting, approx 4 weeks. spotting x 4 days EXAM PERFORMED: Transvaginal (TV) and Transabdominal (TA) EXAM MEASUREMENTS: GESTATIONAL AGE / DATING Physician Established: Not yet established Dates by LMP: 03/04/22 (5 weeks/3 days) EDC: 12/09/22 Dates by First Scan: No previous this is first scan Dates by Current Scan for: Unable to date by today's study MATERNAL ANATOMY Uterus: 8.6 x 5.7 x 4.3 cm Right Ovary: 3.0 x 2.2 x 1.7cm Left Ovary: 4.8 x 2.8 x 2.3 cm Post CDS / Adnexa: WNL Presence of free fluid: No Presence of corpus luteal cyst: Possible in left ovary measuring 2.8 x 2.6 x 2.2 cm Presence of subchorionic bleed: No GESTATION / SURVEY CRL: Not vis MSD: 1.5 x 1.4 x 0.8cm (5 weeks/3 days) Yolk Sac (normal less than 6mm): 2.6mm IUP: Gestational sac and yolk sac visualized in endometrium area Date of LMP: 03/04/22 Beta HcG (if available): 18,598 IMPRESSION: There is intrauterine gestational sac with size that corresponds to 5 weeks and 3 days. There is a yo lk sac. Follow-up exam recommended in 10 days to confirm a living fetus. No sign of ectopic .
--- NOTE | 2022-04-11 20:19 | ED ---
Abdominal Pain HPI - General Chief Complaint: Abdominal Pain Stated Complaint: early , cramping Time Seen by Provider: 04/11/22 17:46 Source: patient Mode of arrival: ambulatory Limitations: no limitations - History of Present Illness Initial Comments: Patient is a 21-year-old A0 female at approximately 5 weeks who presents to the emergency department with chief complaint of abdominal pain and vaginal bleeding. Patient states pain started 3 days ago. Describes it as a lower mild cramping. Reports light pink spotting on toilet paper when wiping for the past 3 days. Also reports nausea without vomiting. Denies fever, chills, chest pain, shortness of breath, burning with urination, blood in the urine, diarrhea. As bowel movement was today which patient states is normal. He has history of appendectomy and cholecystectomy. Patient follows with Dr. Perez has not met with her for this yet. - Related Data Home Medications Medication Instructions Recorded Confirmed Kud-Rsbg-Bcknn Acid 1 cap PO DAILY 03/06/21 04/11/22 [-U Capsule (formulary)] Allergies Allergy/AdvReac Type Severity Reaction Status Date / Time No Known Allergies Allergy Verified 04/11/22 18:16 Review of Systems ROS Statement: Those systems with pertinent positive or pertinent negative responses have been documented in the HPI. ROS Other: All systems not noted in ROS Statement are negative. Past Medical History Past Medical History: Asthma, GERD/Reflux Additional Past Medical History / Comment(s): Cholestasis History of Any Multi-Drug Resistant Organisms: None Reported Past Surgical History: Appendectomy, Cholecystectomy Past Anesthesia/Blood Transfusion Reactions: No Reported Reaction Past Psychological History: Anxiety Smoking Status: Never smoker Past Alcohol Use History: None Reported Past Drug Use History: None Reported - Past Family History Father Family Medical History: Diabetes Mellitus, Hypertension Sister(s) Family Medical History: Asthma General Exam Limitations: no limitations General appearance: alert, in no apparent distress Head exam: Present: atraumatic, normocephalic, normal inspection Eye exam: Present: normal appearance, PERRL, EOMI. Absent: scleral icterus, conjunctival injection, periorbital swelling Respiratory exam: Present: normal lung sounds bilaterally. Absent: respiratory distress, wheezes, rales, rhonchi, stridor Cardiovascular Exam: Present: regular rate, normal rhythm, normal heart sounds. Absent: systolic murmur, diastolic murmur, rubs, gallop, clicks GI/Abdominal exam: Present: soft, normal bowel sounds. Absent: distended, tenderness, guarding, rebound, rigid Neurological exam: Present: alert, oriented X3, CN II-XII intact Psychiatric exam: Present: normal affect, normal mood Skin exam: Present: warm, dry, intact, normal color. Absent: rash Course Vital Signs 04/11/22 13:44 Temperature 97.7 F Pulse Rate 105 H Respiratory 20 Rate Blood Pressure 158/90 O2 Sat by Pulse 99 Oximetry Medical Decision Making - Medical Decision Making This is a 21-year-old female presenting with abdominal cramping and spotting. Results discussed with patient. Patient will be given prescription for repeat beta hCG in 48 hours for threatened miscarriage. Return parameters discussed. Also discussed the use of vitamin B6 and Unisom for nausea and vomiting in . Dr. Mcfadden is my attending. - Lab Data Result diagrams: 04/11/22 18:20 04/11/22 18:20 Lab Results 04/11/22 04/11/22 04/11/22 Range/Units 18:20 18:20 18:43 WBC 8.1 (3.8-10.6) k/uL RBC 4.46 (3.80-5.40) m/uL Hgb 11.6 (11.4-16.0) gm/dL Hct 35.2 (34.0-46.0) % MCV 78.9 L (80.0-100.0) fL MCH 26.0 (25.0-35.0) pg MCHC 33.0 (31.0-37.0) g/dL RDW 14.2 (11.5-15.5) % Plt Count 399 (150-450) k/uL MPV 8.9 Neutrophils % 66 % Lymphocytes % 25 % Monocytes % 4 % Eosinophils % 3 % Basophils % 1 % Neutrophils # 5.4 (1.3-7.7) k/uL Lymphocytes # 2.0 (1.0-4.8) k/uL Monocytes # 0.3 (0-1.0) k/uL Eosinophils # 0.2 (0-0.7) k/uL Basophils # 0.0 (0-0.2) k/uL Sodium 138 (137-145) mmol/L Potassium 4.0 (3.5-5.1) mmol/L Chloride 104 (98-107) mmol/L Carbon Dioxide 22 (22-30) mmol/L Anion Gap 12 mmol/L BUN 11 (7-17) mg/dL Creatinine 0.60 (0.52-1.04) mg/dL Est GFR (CKD-EPI)AfAm >90 (>60 ml/min/1.73 sqM) Est GFR (CKD-EPI)NonAf >90 (>60 ml/min/1.73 sqM) Glucose 89 (74-99) mg/dL Calcium 8.5 (8.4-10.2) mg/dL Total Bilirubin 0.2 (0.2-1.3) mg/dL AST 22 (14-36) U/L ALT 31 (4-34) U/L Alkaline Phosphatase 127 H (38-126) U/L Total Protein 6.8 (6.3-8.2) g/dL Albumin 4.3 (3.5-5.0) g/dL Lipase 50 (23-300) U/L HCG, Quant 80762.7 mIU/mL Urine Color Yellow Urine Appearance Clear (Clear) Urine pH 7.5 (5.0-8.0) Ur Specific [place] 1.026 (1.001-1.035) Urine Protein Trace H (Negative) Urine Glucose (UA) Negative (Negative) Urine Ketones Negative (Negative) Urine Blood Negative (Negative) Urine Nitrite Negative (Negative) Urine Bilirubin Negative (Negative) Urine Urobilinogen <2.0 (<2.0) mg/dL Ur Leukocyte Esterase Negative (Negative) Disposition Clinical Impression: Threatened miscarriage in early Disposition: HOME SELF-CARE Condition: Good Instructions (If sedation given, give patient instructions): Threatened Miscarriage (ED) Additional Instructions: Take prescription for repeat serum beta hCG to local lab in 48 hours for trending of lab value. Follow-up with MEDICAL EQUIPMENT TECHNICIAN. Use of [id number]-wqmfyys Unisom with vitamin B6 can help nausea and vomiting in . Do not drive while taking Unisom and it can make you sleepy. Return to the emergency department if you experience new, concerning, or worsening symptoms. Is patient prescribed a controlled substance at d/c from ED?: No Referrals: Barbi Flores MD [Primary Care Provider] - 1-2 days Time of Disposition: 20:18
== END 2022-04-11 20:32 | disposition home or self-care (01) ==
LOC: EC 13:42
DX: O20.0 Threatened abortion (principal); Z3A.01 Less than 8 weeks gestation of pregnancy
CPT/HCPCS: 36415; 80053; 83690; 85025; 81003; 84702; 76801; 76817; 96374; 96361; 99284; J2405

== ENCOUNTER → 2022-05-18 | Outpatient (CLI) | payer OTHER ==
--- NOTE | 2022-05-19 08:14 | US ---
EXAMINATION TYPE: Ultrasound OB <= 14 weeks transvaginal DATE OF EXAM: 05/18/2022 4:58 PM COMPARISON: 04/11/2022 CLINICAL HISTORY: 21-year-old female O26.899 abdominal cramping affecting . EXAM PERFORMED: Transvaginal (TV) and Transabdominal (TA) FINDINGS: EXAM MEASUREMENTS: GESTATIONAL AGE / DATING Dates by LMP: (10 weeks/5 days) EDC: 12/09/2022 Dates by Current Scan for: (11 weeks/0 days) EDC: 12/07/2022 MATERNAL ANATOMY Uterus: Small 1.3 cm subchorionic hemorrhage inferior to gestational sac. Right Ovary: wnl Left Ovary: wnl Post CDS / Adnexa: wnl Presence of free fluid: No Presence of corpus luteal cyst: Possibly 1.7 cm within the left ovary. Presence of subchorionic bleed: Yes GESTATION / SURVEY CRL: 4.12cm (11 weeks/0 days) Yolk Sac (normal less than 6mm): 3.7mm Heart Rate: 163 bpm Rhythm: Normal IUP: Viable IUP Date of LMP: 03/04/2022 IMPRESSION: 1. Single live intrauterine with estimated gestational age of 10 weeks 5 days by LMP. Curre nt ultrasound biometry is concordant (11 weeks 0 days) by crown-rump length. 2. Small 1.3 cm perigestational bleed inferiorly. 3. Complete survey recommended at 18-20 weeks.
== END | disposition home or self-care (01) ==
LOC: RADUSWWP 16:18
PROVIDERS: ATTEND Obstetrics & Gynecology
DX: O26.899 Other specified pregnancy related conditions, unspecified trimester (principal); O20.9 Hemorrhage in early pregnancy, unspecified; Z3A.10 10 weeks gestation of pregnancy
CPT/HCPCS: 76801; 76817

== ENCOUNTER 2022-06-09 04:43 | Emergency (ER) | payer OTHER ==
[2022-06-09] MEDS ORDERED: ACETAMINOPHEN TAB 325 MG TAB PO STA (06:14)
--- NOTE | 2022-06-09 06:21 | ED ---
General Adult HPI - General Chief complaint: Shortness of Breath Stated complaint: TREASURE Time Seen by Provider: 06/09/22 06:05 Source: patient, RN notes reviewed, old records reviewed Mode of arrival: ambulatory Limitations: no limitations - History of Present Illness Initial comments: This is a well-appearing 21-year-old female who presents ambulatory with complaints of sore throat, cough and congestion with shortness of breath over the past 2 days. She did have an exposure to a family member that believes they had the flu. She is 13 weeks . . Denies any vaginal bleeding or abdominal pain. Denies any fevers but did have chills. States did have some vomiting after a coughing spell. History of asthma and GERD. -: days(s) (2) Location: mouth (sore throat) Radiation: non-radiation Severity scale (1-10): 0 Consistency: intermittent Associated Symptoms: cough, shortness of breath, other (congestion) Treatments Prior to Arrival: none - Related Data Home Medications Medication Instructions Recorded Confirmed Aev-Hplj-Hxsfa Acid 1 cap PO DAILY 03/06/21 04/11/22 [-U Capsule (formulary)] Allergies Allergy/AdvReac Type Severity Reaction Status Date / Time No Known Allergies Allergy Verified 04/11/22 18:16 Patient : Yes Number of weeks : 13 Review of Systems ROS Statement: Those systems with pertinent positive or pertinent negative responses have been documented in the HPI. ROS Other: All systems not noted in ROS Statement are negative. Past Medical History Past Medical History: Asthma, GERD/Reflux Additional Past Medical History / Comment(s): Cholestasis History of Any Multi-Drug Resistant Organisms: None Reported Past Surgical History: Appendectomy, Cholecystectomy Past Anesthesia/Blood Transfusion Reactions: No Reported Reaction Past Psychological History: Anxiety Smoking Status: Never smoker Past Alcohol Use History: None Reported Past Drug Use History: None Reported - Past Family History Father Family Medical History: Diabetes Mellitus, Hypertension Sister(s) Family Medical History: Asthma General Exam Limitations: no limitations General appearance: alert, in no apparent distress Head exam: Present: atraumatic Eye exam: Present: normal appearance. Absent: scleral icterus, conjunctival injection, periorbital swelling ENT exam: Present: mucous membranes moist Expanded Mouth exam: Present: tongue normal, tongue elevation. Absent: drooling, trismus, muffled voice Throat exam: negative: tonsillar erythema, tonsillomegaly, tonsillar exudate, R peritonsillar mass, L peritonsillar mass Neck exam: Present: normal inspection, full ROM. Absent: tenderness, meningismus Respiratory exam: Present: normal lung sounds bilaterally. Absent: respiratory distress, wheezes, rales, rhonchi, stridor, chest wall tenderness, accessory mu scle use Cardiovascular Exam: Present: tachycardia GI/Abdominal exam: Present: soft Extremities exam: Present: full ROM, normal capillary refill. Absent: pedal edema, calf tenderness Neurological exam: Present: alert, oriented X3, normal gait Psychiatric exam: Present: normal affect, normal mood Skin exam: Present: warm, dry, normal color. Absent: cyanosis, diaphoretic, pallor Course Vital Signs 06/09/22 05:17 Temperature 98.2 F Pulse Rate 118 H Respiratory 22 Rate Blood Pressure 126/81 O2 Sat by Pulse 98 Oximetry Medical Decision Making - Medical Decision Making Patient presents with 2 days of cough congestion shortness of breath and sore throat. Denies any fevers. She is 13 weeks . Centor criteria 0. Lung sounds are clear to auscultation. Oxygen saturation 98% on room air. Influenza RSV and coronavirus swab negative. Urinalysis negative for infection. She did have an exposure to a sick family member. This is likely viral in nature. She was encouraged to increase her fluid intake Tylenol as needed for discomfort. Benadryl as a antihistamine. She is . 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 Case discussed with Dr. Mcfadden. - Lab Data Lab Results 06/09/22 06/09/22 Range/Units 07:43 10:09 Urine Color Yellow Urine Appearance Clear (Clear) Urine pH 6.0 (5.0-8.0) Ur Specific [place] 1.023 (1.001-1.035) Urine Protein Trace H (Negative) Urine Glucose (UA) Negative (Negative) Urine Ketones 1+ H (Negative) Urine Blood Negative (Negative) Urine Nitrite Negative (Negative) Urine Bilirubin Negative (Negative) Urine Urobilinogen <2.0 (<2.0) mg/dL Ur Leukocyte Esterase Negative (Negative) Influenza Type A (PCR) Not Detected (Not Detectd) Influenza Type B (PCR) Not Detected (Not Detectd) RSV (PCR) Not Detected (Not Detectd) SARS-CoV-2 (PCR) Not Detected (Not Detectd) Disposition Clinical Impression: Upper respiratory infection Disposition: HOME SELF-CARE Condition: Good Instructions (If sedation given, give patient instructions): Cold Symptoms (ED) Additional Instructions: Increase your fluid intake. Tylenol as needed for any discomfort or fevers. You can also use Benadryl as an antihistamine. Follow up with her primary care doctor this week. Is patient prescribed a controlled substance at d/c from ED?: No Referrals: Barbi Flores MD [Primary Care Provider] - 1-2 days Time of Disposition: 10:39
[2022-06-09 10:31] LABS: Appearance,Urine Clear (Clear); Bilirubin,Urine Negative (Negative); Blood,Urine Negative (Negative); Color,Urine Yellow; Glucose,Urine (UA) Negative (Negative); Ketones,Urine 1+ (Negative); Leukocyte Esterase,Urine Negative (Negative); Nitrite,Urine Negative (Negative); Protein,Urine Trace (Negative); Specific Gravity,Urine 1.023 (1.001-1.035); Urobilinogen,Urine <2.0 mg/dL (<2.0)
[2022-06-09 11:00] VITALS: BP 132/92; PULSE 82; RESP 18; TEMP 9736
== END 2022-06-09 11:05 | disposition home or self-care (01) ==
LOC: EC 04:43
DX: O99.511 Diseases of the respiratory system complicating pregnancy, first trimester (principal); O99.331 Smoking (tobacco) complicating pregnancy, first trimester; F17.200 Nicotine dependence, unspecified, uncomplicated; J06.9 Acute upper respiratory infection, unspecified; O99.341 Other mental disorders complicating pregnancy, first trimester; F41.9 Anxiety disorder, unspecified; Z20.822 Contact with and (suspected) exposure to COVID-19; Z3A.13 13 weeks gestation of pregnancy
CPT/HCPCS: 81003; 87636; 99285

== ENCOUNTER 2022-11-06 16:19 | Outpatient (CLI) | payer OTHER ==
[2022-11-06] MEDS ORDERED: BETAMET ACET-BETAMETH SOD PHOS 6 MG/ML MDV IM SCH (16:30)
[2022-11-06 17:18] VITALS: BP 119/62; PULSE 100; RESP 18; TEMP 97.7
== END 2022-11-06 17:10 | disposition home or self-care (01) ==
LOC: FBPOP 16:19
PROVIDERS: ATTEND Obstetrics & Gynecology
DX: O26.619 Liver and biliary tract disorders in pregnancy, unspecified trimester (principal)
CPT/HCPCS: 59025; 96372; G0463; J0702; 99213

== ENCOUNTER 2022-11-10 05:50 | Inpatient (IN) | payer OTHER ==
[2022-11-10] MEDS ORDERED: OXYTOCIN 10 UNIT/ML 1 ML VIAL IM PRN (06:13)
[2022-11-10] MEDS ORDERED: LIDOCAINE 0.5% (PF) 5 MG/ML (50 ML SDV) SQ PRN (06:13)
[2022-11-10] MEDS ORDERED: miSOPROStoL 200 MCG TAB PO PRN (06:13)
[2022-11-10] MEDS ORDERED: METHYLERGONOVINE 0.2 MG/ML 1 ML AMP IM PRN (06:13)
[2022-11-10] MEDS ORDERED: TRANEXAMIC ACID IN NACL,ISO-OS 1,000 MG in EMPTY BAG 1 BAG IV PRN (06:13)
[2022-11-10] MEDS ORDERED: CARBOPROST TROMETHAMINE 250 MCG/ML 1 ML AMP IM PRN (06:13)
[2022-11-10] MEDS ORDERED: TERBUTALINE 1 MG/ML VIAL SQ PRN (06:13)
[2022-11-10] MEDS ORDERED: OXYTOCIN 30 UNITS/500 ML NS 30 UNIT in SALINE 1 500ML.BAG IV SCH ×2 (06:15→17:15)
[2022-11-10 06:41] LABS: Basophils % (A) 0 %; Eosinophils # (A) 0.1 k/uL (0-0.7); Eosinophils % (A) 1 %; HCT 33.6 % (34.0-46.0); HGB 11.1 gm/dL (11.4-16.0); Lymphocytes # (A) 2.4 k/uL (1.0-4.8); Lymphocytes % (A) 25 %; MCH 26.9 pg (25.0-35.0); MCV 81.6 fL (80.0-100.0); Mean Platelet Volume 8.6; Monocytes # (A) 0.4 k/uL (0-1.0); Monocytes % (A) 4 %; Neutrophils # (A) 6.6 k/uL (1.3-7.7); Neutrophils % (A) 69 %; Platelet Count 387 k/uL (150-450); RBC 4.12 m/uL (3.80-5.40); RDW 14.1 % (11.5-15.5); WBC 9.6 k/uL (3.8-10.6)
[2022-11-10] MEDS: LACTATED RINGERS 1,000 ML IV SCH ×3 (06:44→23:30)
[2022-11-10] MEDS ORDERED: BUTORPHANOL 2 MG/ML 1 ML VIAL IV PRN (12:24)
[2022-11-10] MEDS ORDERED: CITRIC ACID-SODIUM CITRATE 15 ML CUP PO ONE (17:10)
[2022-11-10] MEDS ORDERED: ONDANSETRON 4 MG/2 ML VIAL ONE (17:39)
[2022-11-10] MEDS ORDERED: KETOROLAC 15 MG/ML 1 ML VIAL ONE (17:39)
[2022-11-10] MEDS ORDERED: MORPHINE SULFATE (PF) 0.3 MG/0.3 ML SYR ONE (17:39)
[2022-11-10] MEDS ORDERED: OXYTOCIN 10 UNIT/ML 1 ML VIAL ONE (17:39)
[2022-11-10] MEDS ORDERED: PHENYLEPHRINE-0.9% NACL SYG 1,000 MCG/10 ML SYRINGE ONE (17:39)
[2022-11-10] MEDS ORDERED: NALOXONE 0.4 MG/ML 1 ML VIAL IV PRN (18:15)
[2022-11-10] MEDS ORDERED: ONDANSETRON 4 MG/2 ML VIAL IVP PRN (18:15)
[2022-11-10] MEDS ORDERED: diphenhydrAMINE 50 MG CAP PO PRN (18:15)
[2022-11-10] MEDS ORDERED: diphenhydrAMINE 25 MG CAP PO PRN (18:15)
[2022-11-10] MEDS ORDERED: SIMETHICONE 80 MG CHEWABLE PO PRN (18:15)
[2022-11-10] MEDS ORDERED: ZOLPIDEM 5 MG TAB PO PRN (18:15)
[2022-11-10] MEDS ORDERED: diphenhydrAMINE 50 MG/ML 1 ML VIAL IVP PRN ×2 (18:15)
[2022-11-10] MEDS: ACETAMINOPHEN TAB 500 MG TAB PO SCH (20:04)
[2022-11-10] MEDS: SENNOSIDES-DOCUSATE SODIUM 1 EACH TAB PO SCH (20:04)
[2022-11-10] MEDS: METOCLOPRAMIDE 5 MG/ML 2 ML VIAL IVP PRN (20:24)
[2022-11-11] MEDS: KETOROLAC 15 MG/ML 1 ML VIAL IVP SCH ×4 (00:25→18:59)
[2022-11-11] MEDS: IBUPROFEN 600 MG TAB PO SCH ×4 (01:18→19:03)
[2022-11-11] MEDS: ACETAMINOPHEN TAB 500 MG TAB PO SCH ×4 (03:57→22:03)
[2022-11-11] MEDS: LACTATED RINGERS 1,000 ML IV SCH ×2 (05:18→16:15)
[2022-11-11] MEDS: METOCLOPRAMIDE 5 MG/ML 2 ML VIAL IVP PRN (05:18)
[2022-11-11 07:55] LABS: Basophils % (A) 0 %; Eosinophils # (A) 0.1 k/uL (0-0.7); Eosinophils % (A) 1 %; HGB 10.3 gm/dL (11.4-16.0); Lymphocytes # (A) 1.4 k/uL (1.0-4.8); Lymphocytes % (A) 17 %; MCH 26.8 pg (25.0-35.0); MCHC 33.3 g/dL (31.0-37.0); MCV 80.3 fL (80.0-100.0); Mean Platelet Volume 8.7; Monocytes # (A) 0.2 k/uL (0-1.0); Monocytes % (A) 3 %; Neutrophils # (A) 6.3 k/uL (1.3-7.7); Neutrophils % (A) 77 %; Platelet Count 295 k/uL (150-450); RBC 3.86 m/uL (3.80-5.40); RDW 14.2 % (11.5-15.5); WBC 8.1 k/uL (3.8-10.6)
[2022-11-11] MEDS: SENNOSIDES-DOCUSATE SODIUM 1 EACH TAB PO SCH ×2 (08:05→21:00)
--- NOTE | 2022-11-11 08:33 | P.HPOB ---
History of Present Illness H&P Date: 11/10/22 Chief Complaint: TOLAC 21 year old presents 35 weeks and 6 days for induction of labor due to cholestasis of with elevated liver enzymes. Patient had a previous section and was fully informed about the risks and benefits of a trial of labor after . Patient will be induced with amniotomy and Pitocin. Her cervix is 1-2 cm dilated, 70% effaced, and -2 station. heart tones are 135 with moderate variability and reactive. Review of Systems All systems: negative Constitutional: Denies chills, Denies fever Eyes: denies blurred vision, denies pain Ears, nose, mouth and throat: Denies headache, Denies sore throat Cardiovascular: Denies chest pain, Denies shortness of breath Respiratory: Denies cough Gastrointestinal: Denies abdominal pain, Denies diarrhea, Denies nausea, Denies vomiting Genitourinary: Denies dysuria, Denies hematuria Musculoskeletal: Denies myalgias Integumentary: Denies pruritus, Denies rash Neurological: Denies numbness, Denies weakness Psychiatric: Denies anxiety, Denies depression Endocrine: Denies fatigue, Denies weight change Past Medical History Past Medical History: Asthma, GERD/Reflux Additional Past Medical History / Comment(s): Cholestasis History of Any Multi-Drug Resistant Organisms: None Reported Past Surgical History: Appendectomy, Cholecystectomy Past Anesthesia/Blood Transfusion Reactions: No Reported Reaction Past Psychological History: Anxiety Smoking Status: Never smoker Past Alcohol Use History: None Reported Past Drug Use History: None Reported - Past Family History Father Family Medical History: Diabetes Mellitus, Hypertension Sister(s) Family Medical History: Asthma Medications and Allergies Home Medications Medication Instructions Recorded Confirmed Type Off-Nrpi-Mydav Acid 1 cap PO DAILY 03/06/21 11/10/22 History [-U Capsule (formulary)] ursodioL [Ursodiol] 300 mg PO TID 11/05/22 11/10/22 History Allergies Allergy/AdvReac Type Severity Reaction Status Date / Time No Known Allergies Allergy Verified 11/05/22 15:59 Exam Osteopathic Statement: *. No significant issues noted on an osteopathic structural exam other than those noted in the History and Physical/Consult. Vital Signs Temp Pulse Resp BP Pulse Ox 11/11/22 04:00 98.4 F 78 15 128/84 11/11/22 00:00 98.2 F 90 16 102/64 11/10/22 20:20 96.9 F L 86 15 118/67 100 11/10/22 19:50 65 15 107/57 97 11/10/22 19:20 75 16 111/60 97 11/10/22 19:05 85 15 111/61 98 11/10/22 18:50 96.8 F L 106 H 18 119/68 99 11/10/22 18:35 96.9 F L 94 18 117/56 100 11/10/22 18:20 97.1 F L 100 18 114/56 100 Intake and Output 11/10/22 11/11/22 11/11/22 22:59 06:59 14:59 Intake Total 480 480 Output Total 897 600 Balance -417 -120 Intake: Oral 480 480 Output: Urine 400 600 Uretheral (Redd) 200 Output, Quantitative 497 Blood Loss Other: Voiding Method Indwelling Catheter Heart: Regular rate and rhythm Lungs: Clear to auscultation bilaterally Abdomen: Soft, nontender Extremities: Negative Homans sign Results Result Diagrams: 11/11/22 07:34 Abnormal Lab Results - Last 24 Hours (Table) 11/11/22 Range/Units 07:34 Hgb 10.3 L (11.4-16.0) gm/dL Hct 31.0 L (34.0-46.0) % Assessment and Plan (1) Previous section Current Visit: Yes Status: Acute Code(s): Z98.891 - HISTORY OF UTERINE SCAR FROM PREVIOUS SURGERY SNOMED Code(s): 572644364 (2) Cholestasis of affecting childbirth Current Visit: No Status: Acute Code(s): O26.62 - LIVER AND BILIARY TRACT DISORDERS IN CHILDBIRTH; K83.1 - OBSTRUCTION OF BILE DUCT SNOMED Code(s): 24828993621995189 Plan: 1. Induction of labor with amniotomy and Pitocin
--- NOTE | 2022-11-11 08:38 | P.OP ---
Date of Procedure: 11/10/22 Preoperative Diagnosis: 1. Intrahepatic cholestasis of 2. Previous section 3. Failed induction Postoperative Diagnosis: Same Procedure(s) Performed: Repeat low transverse Anesthesia: spinal Surgeon: Blanca Perez Floorhand #1: Odalis Blancas Estimated Blood Loss (ml): 400 IV fluids (ml): 800 Urine output (ml): 100 Pathology: other (Placenta) Condition: stable Disposition: floor Indications for Procedure: Patient presented for induction of labor, trial of labor after , due to intrahepatic cholestasis of . Her cervix is 1-2 cm dilated, 70% effaced, -2 station. She was lora irregularly. heart tones 135 with moderate variability and reactive. Amniotomy performed just after 6 AM, clear fluid noted. Pitocin augmentation artery been started. Throughout the day patient underwent position changes, increased and Pitocin, and had adequate contractions for several hours. Her cervix dilated to [address] that way for over 6 hours. Patient centered huddle was performed at bedside. It was my clinical recommendation to proceed with delivery. Patient then had a consultation with her family and private. When I returned to the room questions were answered and the patient agreed to proceed with the recommended plan. Operative Findings: Viable female, Apgars 9, 9, weight 5 lbs. 11 oz. Normal uterus, tubes, ovaries. Description of Procedure: Patient was taken to the operating room where spinal anesthesia was found be adequate. She was prepped and draped in normal sterile fashion in dorsal supine position with a leftward tilt. Pfannenstiel skin incision was made the scalpel and carried through to the underlying layer of fascia with the scalpel. Fascia was incised in midline and carried bilaterally with the Arredondo scissors. The superior aspect of the fascial incision was grasped with Batson clamps elevated and the underlying rectus muscles dissected off with the Arredondo's. Attention was then turned to inferior aspect of same incision which in a similar fashion was grasped tented up and the underlying rectus muscles dissected off with the Arredondo's. The rectus muscles were the midline and the peritoneum was identified tented up and entered sharply with the scalpel. The incision was extended superiorly and inferiorly with good visualization of the bladder. The bladder blade was inserted and the vesicouterine peritoneum was incised the Metzenbaums then carried bilaterally and bladder flap created digitally. A low transverse incision was then made on the uterus with the scalpel. This was carried bilaterally and digital manner. Infant's head delivered atraumatically, nose and mouth bulb suctioned, cord clamped and cut, infant handed off to waiting nurses. Apgars 9,9, weight 5 lbs. 11 oz. Placenta delivered manually, intact with three-vessel cord. The uterus is exteriorized and cleared of all clots and debris. The uterine incision was closed with 0 Vicryl in a running locked fashion. Second layer of the same sutures used in imbricating fashion to obtain excellent hemostasis. Both ovaries and tubes appeared normal. The uterus was placed back into the abdomen. The muscles were reapproximated using 2-0 Vicryl in interrupted fashion. The fascia was reapproximated using 0 Vicryl in a running fashion. The subcutaneous tissues closed with 3-0 Vicryl running fashion. The skin was closed ariel. Patient tolerated the procedure well, sponge and instrument counts were correct times 2 and she was taken to the re covery room in stable condition.
--- NOTE | 2022-11-11 08:40 | P.PNOBGPC ---
Subjective - Subjective Principal diagnosis: Status post repeat low transverse postop day 1 Interval history: Patient seen and examined. She says she is hungry but her bowel sounds are minimal. She is eating popsicles but they are coming back up. We will try some crackers and then possibly advance her diet later today if she starts to have bowel sounds are pass gas. Patient denies fever, chills, chest pain, shortness of breath or calf pain. Patient reports: Reports appetite normal, Reports voiding normally, Reports pain well controlled, Reports ambulating normally [place]: doing well Objective - Vital Signs Latest vital signs: Vital Signs Temp Pulse Resp BP Pulse Ox 11/11/22 04:00 98.4 F 78 15 128/84 11/11/22 00:00 98.2 F 90 16 102/64 11/10/22 20:20 96.9 F L 86 15 118/67 100 11/10/22 19:50 65 15 107/57 97 11/10/22 19:20 75 16 111/60 97 11/10/22 19:05 85 15 111/61 98 11/10/22 18:50 96.8 F L 106 H 18 119/68 99 11/10/22 18:35 96.9 F L 94 18 117/56 100 11/10/22 18:20 97.1 F L 100 18 114/56 100 Intake and Output 11/10/22 11/11/22 11/11/22 22:59 06:59 14:59 Intake Total 480 480 Output Total 897 600 Balance -417 -120 Intake: Oral 480 480 Output: Urine 400 600 Uretheral (Redd) 200 Output, Quantitative 497 Blood Loss Other: Voiding Method Indwelling Catheter - Exam Lungs: bilateral: normal Chest: Normal S1, Normal S2 Extremities: Present: normal Abdomen: Present: normal appearance, soft. Absent: distention, tenderness Incision: Present: normal, dry, intact Uterus: Present: normal, firm - Labs Labs: Abnormal Lab Results - Last 24 Hours (Table) 11/11/22 Range/Units 07:34 Hgb 10.3 L (11.4-16.0) gm/dL Hct 31.0 L (34.0-46.0) % Assessment and Plan (1) Previous section Current Visit: Yes Status: Resolved Code(s): Z98.891 - HISTORY OF UTERINE SCAR FROM PREVIOUS SURGERY SNOMED Code(s): 133795254 (2) Cholestasis of affecting childbirth Current Visit: No Status: Resolved Code(s): O26.62 - LIVER AND BILIARY TRACT DISORDERS IN CHILDBIRTH; K83.1 - OBSTRUCTION OF BILE DUCT SNOMED Code(s): 38719579836831499 (3) Status post repeat low transverse section Current Visit: Yes Status: Acute Code(s): Z98.891 - HISTORY OF UTERINE SCAR FROM PREVIOUS SURGERY SNOMED Code(s): 579441990 Plan: 1. Increase ambulation 2. Advanced diet when patient is passing gas 3. By mouth pain medications as tolerated
--- NOTE | 2022-11-11 09:57 | P.PN ---
Progress Note - Text Progress Note Date: 11/11/22 (3145) Anesthesia Postop day 1 Subjective: Status Post section with Duramorph. Patient seen and examined. Doing well without complaint. VAS 0. No nausea vomiting or pruritus. Afebrile. Gross lower extremity strength intact. Spinal site intact without induration. Without apparent anesthetic complications. Objective: Vital signs reviewed Heart: Regular Rate Lungs: Good chest excursion Abdomen: Appears nondistended Assessment: Status post with Duramorph postop day 1 Plan: Continue current care with your medical management. Anticipated and the Duramorph around 5 PM tonight, you may see increased pain needs around this time.
[2022-11-12] MEDS: IBUPROFEN 600 MG TAB PO SCH ×5 (01:08→23:40)
[2022-11-12] MEDS: ACETAMINOPHEN TAB 500 MG TAB PO SCH ×4 (05:30→20:09)
--- NOTE | 2022-11-12 11:11 | P.PNOBGPC ---
Subjective - Subjective Principal diagnosis: Status post primary section postoperative day #2 Interval history: Patient is doing okay. She is ambulating. She is passing flatus and bowel movement. She does have some more pain on the right lower side of her incision. This is fairly well controlled with her current pain medications. Baby is in level I nursery and she is attempting to breast-feed. Patient reports: Reports appetite normal, Reports voiding normally, Reports pain well controlled, Reports ambulating normally : other (In level I nursery) Objective - Vital Signs Latest vital signs: Vital Signs Temp Pulse Resp BP Pulse Ox 11/12/22 08:00 98.0 F 70 16 125/84 100 11/12/22 00:00 97.7 F 91 16 108/67 98 11/11/22 16:00 98.5 F 90 16 119/64 Intake and Output 11/11/22 11/12/22 11/12/22 22:59 06:59 14:59 Other: # Voids 2 2 1 - Exam Extremities: Present: normal. Absent: tenderness, edema Abdomen: Present: normal appearance, soft (Positive bowel sounds 4). Absent: distention, tenderness Incision: Present: normal, dry, intact. Absent: erythematous Uterus: Present: normal, firm. Absent: tenderness Assessment and Plan Assessment: Status post primary low transverse section postoperative day #2 Plan: Continue with postoperative and care today. Patient advised she can use an ice pack on her right lower side of her incision as needed. Continue with ibuprofen and Tylenol for pain.
[2022-11-12] MEDS: SENNOSIDES-DOCUSATE SODIUM 1 EACH TAB PO SCH ×2 (12:54→20:11)
[2022-11-13] MEDS: ACETAMINOPHEN TAB 500 MG TAB PO SCH ×3 (08:09→21:30)
[2022-11-13] MEDS: SENNOSIDES-DOCUSATE SODIUM 1 EACH TAB PO SCH ×2 (09:09→20:15)
--- NOTE | 2022-11-13 11:43 | P.PNOBGPC ---
Subjective - Subjective Principal diagnosis: Status post repeat section postoperative day #3 Interval history: Patient is doing well. She is ambulating. She is passing flatus and bowel movements. She is urinating without difficulty. She still has some pain on the right side of her incision but ice packs are helping with it. She did notice a small red spot above the incision and was concerned. Baby is still in level I nursery. Patient reports: Reports appetite normal, Reports voiding normally, Reports pain well controlled, Reports ambulating normally : other (In level I nursery) Objective - Vital Signs Latest vital signs: Vital Signs Temp Pulse Resp BP Pulse Ox 11/13/22 08:00 97.6 F 89 18 125/85 99 11/13/22 04:00 98.8 F 82 16 108/62 99 11/12/22 20:00 97.8 F 88 16 103/68 98 11/12/22 16:00 98.9 F 92 18 122/80 99 Intake and Output 11/12/22 11/13/22 11/13/22 22:59 06:59 14:59 Intake Total 200 Balance 200 Intake: Oral 200 Other: # Voids 1 3 - Exam Extremities: Present: normal. Absent: tenderness Abdomen: Present: normal appearance, soft, other (There is a small red patch above the incision on the right side that appears to be an irritation possibly from the bandage being removed, nontender). Absent: distention, tenderness Incision: Present: normal, dry, intact. Absent: erythematous Uterus: Present: normal, firm. Absent: tenderness Assessment and Plan Assessment: Status post repeat low transverse section postoperative day #3 Plan: Continue with postoperative and care today. Continue with ice packs and ibuprofen for pain as needed. Patient will be seen by Dr. Perez tomorrow.
[2022-11-13] MEDS: IBUPROFEN 600 MG TAB PO SCH ×3 (13:10→20:14)
[2022-11-14] MEDS: ACETAMINOPHEN TAB 500 MG TAB PO SCH ×3 (06:36→17:32)
[2022-11-14] MEDS: IBUPROFEN 600 MG TAB PO SCH ×2 (06:37→08:11)
[2022-11-14] MEDS: SENNOSIDES-DOCUSATE SODIUM 1 EACH TAB PO SCH (08:21)
--- NOTE | 2022-11-14 09:05 | P.DS ---
Providers Date of admission: 11/10/22 05:50 Expected date of discharge: 11/14/22 Attending physician: Blanca Perez Primary care physician: Stated None Hospital Course: This is a 21-year-old female 2 para 1 at 35-6/7 weeks who presented for induction of labor and failed to progress. She underwent a repeat low transverse section and delivered a viable female with scores of 9 at 1 minute and 9 at 5 minutes and weight of 5 lbs. 11 oz. Please see history and physical and operative notes for details of patient's admission. Her postoperative course has been essentially uncomplicated. Her pain is been fairly well-controlled with ibuprofen and Tylenol. She is breast- feeding. Lochia is decreasing. She is passing flatus and bowel movement. She is attempting to pump her breasts out. Vital signs are stable. Abdomen soft with fundus firm and nontender. Extremities show negative Homans. Impression is status post repeat low transverse section postoperative day #4. Plan is to discharge home today. Routine postoperative and instructions are given. She is advised to follow up with Dr. Perez in the office in 1 week. She will be given a prescription for ibuprofen and a breast pump. Procedures: Oxytocin induction of labor Repeat low transverse section on 11/10/2022 Patient Condition at Discharge: Stable Plan - Discharge Summary New Discharge Prescriptions: New Ibuprofen [Motrin] 600 mg PO Q6H #60 tab Continue Xvx-[id number]-[id number] Acid [-U Capsule (formulary)] 1 cap PO DAILY Discontinued ursodioL [Ursodiol] 300 mg PO TID Discharge Medication List [id number] Acid [-U Capsule (formulary)] 1 cap PO DAILY 03/06/21 [History] Ibuprofen [Motrin] 600 mg PO Q6H #60 tab 11/14/22 [Rx] Follow up Appointment(s)/Referral(s): Blanca Perez DO [Doctor of Osteopathic Medicine] - 12/22/22 10:45 am (Post Op Appointment 11-18-2022 at 1:30) Activity/Diet/Wound Care/Special Instructions: Instructions 1. Do not begin any exercise program for 3 weeks. 2. Do not resume sexual relations for 3 weeks or longer if uncomfortable. 3. You may take tub baths or showers at any time. 4. You may use tampons if desired after 3 weeks. 5. Keep the area of episiotomy (stitches) clean and dry. 6. If you are not nursing, wear a good fitting, supportive bra during the day and limit fluid intake for at least 1 week to prevent breast engorgement. 7. Call the office, [phone], within the next week to make appointment for your 6 week checkup if it has not already been made. 8. Report any of the following occurrences to the doctor promptly: a. Heavy, excessive bleeding b. Chills, fever c. Burning or frequency of urination d. Pain or redness and breasts if nursing e. Increasing pain or swelling in episiotomy (stitches). In addition to the above instructions, the following additional should be followed: 1. No heavy lifting or straining (exercising) until after 6 week checkup. 2. Keep abdominal incision clean and dry: You may wear a dressing if more comfortable. 3. Make office appointment for 10 days after going home or as instructed by her doctor. Discharge Disposition: HOME SELF-CARE
[2022-11-14 16:29] VITALS: BP 132/62; PULSE 92; RESP 18; TEMP 98.4
== END 2022-11-14 17:30 | disposition home or self-care (01) | DRG 540 ==
LOC: 4FBP 05:50
PROVIDERS: ADMIT Obstetrics & Gynecology; ATTEND Obstetrics & Gynecology
PROC: 10907ZC Drainage of Amniotic Fluid, Therapeutic from Products of Conception, Via Natural or Artificial Opening (ICD-10-PCS; 2022-11-10)
PROC: 3E033VJ Introduction of Other Hormone into Peripheral Vein, Percutaneous Approach (ICD-10-PCS; 2022-11-10)
PROC: 10D00Z1 Extraction of Products of Conception, Low, Open Approach (ICD-10-PCS; principal; 2022-11-10 17:53)
DX: O26.62 Liver and biliary tract disorders in childbirth (principal); K83.1 Obstruction of bile duct; Z3A.35 35 weeks gestation of pregnancy; Z37.0 Single live birth; O34.211 Maternal care for low transverse scar from previous cesarean delivery; O61.0 Failed medical induction of labor
CPT/HCPCS: 85025; 86850; 86900; 86901; 88307

== ENCOUNTER 2023-10-16 15:29 | Outpatient (CLI) | payer OTHER ==
[2023-10-16 16:07] LABS: Appearance,Urine Cloudy (Clear); Bilirubin,Urine Negative (Negative); Blood,Urine Small (Negative); Color,Urine Colorless; Glucose,Urine (UA) Negative (Negative); Ketones,Urine Negative (Negative); Leukocyte Esterase,Urine Large (Negative); Mucus,Urine Rare /hpf; Nitrite,Urine Negative (Negative); Protein,Urine Trace (Negative); RBC,Urine 15 /hpf (0-5); Squamous Epithelial Cell,Urine 1 /hpf (0-4); Urobilinogen,Urine <2.0 mg/dL (<2.0); WBC,Urine >182 /hpf (0-5)
[2023-10-16 17:15] LABS: Basophils % (A) 0 %; Eosinophils # (A) 0.1 k/uL (0-0.7); Eosinophils % (A) 1 %; HCT 34.6 % (34.0-46.0); HGB 11.5 gm/dL (11.4-16.0); Lymphocytes # (A) 1.9 k/uL (1.0-4.8); Lymphocytes % (A) 20 %; MCH 28.6 pg (25.0-35.0); MCHC 33.3 g/dL (31.0-37.0); MCV 85.9 fL (80.0-100.0); Mean Platelet Volume 8.8; Monocytes # (A) 0.4 k/uL (0-1.0); Monocytes % (A) 4 %; Neutrophils % (A) 74 %; Platelet Count 330 k/uL (150-450); RBC 4.03 m/uL (3.80-5.40); RDW 14.9 % (11.5-15.5); WBC 9.5 k/uL (3.8-10.6)
--- NOTE | 2023-10-16 17:24 | US ---
EXAMINATION TYPE: US OB >= 14 wk fetus DATE OF EXAM: 10/16/2023 COMPARISON: None CLINICAL INDICATION: Female, 22 years old with history of no care, vag bleeding; Pelvic pain , back pain, spotting for 3-4 days TECHNIQUE: Transabdominal (TA) GESTATIONAL AGE / DATING Physician Established: Not yet established Dates by LMP: (20 weeks/5 days) EDC: 02/28/24 Dates by First Scan: No previous this is first scan Dates by Current Scan: (20 weeks/6 days) EDC: 02/27/24 SURVEY IUP: Single PLACENTA: Posterior PREVIA: No Previa JUAN ALBERTO: 12.0 cm Normal CERVICAL LENGTH (transabdominal: norm > 3.0cm): 3.0 cm Hypoechoic area noted adjacent to cervix ?? etiology BIOMETRY PRESENTATION: Vertex LIE: Transverse with head maternal LT BPD: 4.9 cm 20 weeks / 5 days HC: 18.9 cm 21 weeks / 2 days AC: 14.6 cm 20 weeks / 0 days FL: 3.6 cm 21 weeks / 3 days ESTIMATED WEIGHT IN GRAMS: 367 grams ESTIMATED WEIGHT IN LBS/OZ: 0 lbs. 13 oz. WEIGHT PERCENTAGE BASED ON ESTABLISHED DATES: 40% HC/AC: 1.29 FL/AC: 25% HEART RATE: 147 bpm RHYTHM: Normal MATERNAL WALL MEASUREMENT: 3.5 cm from skin to anterior uterine wall (if exam limited due to body hab itus). IMPRESSION: 1. Single live intrauterine gestation with ultrasound age 20 weeks 6 days. 2. Hypoechoic area adjacent to the cervix, unclear if this is secondary to rock breaker technique. Co nsider short-term follow-up.
[2023-10-16 18:44] VITALS: BP 131/74; PULSE 107; RESP 18; TEMP 97.1
[2023-10-16 20:57] LABS: Amphetamine Screen,Urine Not Detected (NotDetected); Barbiturate Screen,Urine Not Detected (NotDetected); Benzodiazepines Screen,Urine Not Detected (NotDetected); Cocaine Screen,Urine Not Detected (NotDetected); Methadone Screen, Urine Not Detected (NotDetected); Opiate Screen,Urine Not Detected (NotDetected); Oxycodone Screen, Urine Not Detected (NotDetected); Phencyclidine Screen,Urine Not Detected (NotDetected); Tricyclic Antidepressant,Urine Not Detected (NotDetected); Urn Cannabinoid Scrn Not Detected (NotDetected)
[2023-10-16 21:26] LABS: Hepatitis B Surface Antigen Nonreactive (Nonreactive)
[2023-10-16 22:46] LABS: HIV 2 AB Non-Reactive (Non-Reactive); HIV AB P24 Non-Reactive (Non-Reactive); HIV P24 AG Non-Reactive (Non-Reactive)
[2023-10-17 14:06] LABS: C. trachomatis,PCR NEG
[2023-10-17 14:14] LABS: N. gonorrhoeae,PCR Negative (Negative)
--- NOTE | 2023-11-04 18:12 | P.MSEPDOC ---
Presenting Problems - Arrival Data Date of Arrival on Unit: 10/16/23 Time of Arrival on Unit: 15:29 Mode of Transport: Ambulatory - Complaint OB-Reason for Admission/Chief Complaint: Vaginal Bleeding Comment: Spotting, cramping, lower back pain Medical History - Information : 3 Para: 2 Term: 1 : 2 Abortions: Spontaneous or Elective: 0 Number of Living Children: 2 - Gestational Age Gestational Age by CARLO (wks/days): 20 Weeks and 5 Days - History Complications: Prior Comment: Hx Cholestasis Review of Systems - Review of Systems Constitutional: No problems Breast: No problems ENT: No problems Cardiovascular: No problems Respiratory: No problems Gastrointestinal: No problems Genitourinary: No problems Musculoskeletal: No problems Neurological: No problems Skin: No problems Vital Signs - Temperature Temperature: 97.1 F Temperature Source: Temporal Artery Scan - Pulse Right Sitting Brachial Pulse Rate: 107 Pulse Assessment Method: Automatic Cuff - Respirations Respiratory Rate: 18 Oxygen Delivery Method: Room Air O2 Sat by Pulse Oximetry: 98 - Blood Pressure Right Arm Sitting Blood Pressure: 131/74 Blood Pressure Mean: 93 Blood Pressure Source: Automatic Cuff Medical Screen Scoring - Cervical Exam Dilation (cm): 0 Effacement (%): 0 Station: -3 Membranes: Intact - Assessment - Baby A Baseline FHR: 150 Physician Notification - Physician Notified Physician Notified Date: 10/16/23 Physician Notified Time: 17:55 Physician: Lolita Mcpherson Order Received: Yes (antibiotics take as prescribed and make OB appt for follw up) Maternal Triage Index - Maternal Triage Index Presenting for scheduled procedure w/no complaint: No - Stat/Priority 1 Stat Priority 1: No - Urgent/Priority 2 Urgent Priority 2: No - Prompt/Priority 3 Prompt Priority 3: No - Non-Urgent/Priority 4 Non-Urgent Priority 4: Yes Criteria Met for Priority 4: DOM, UTI, meds escribed to [facility] in [place] per pt's preference Disposition - Disposition OB Disposition: Discharge to home Discharge Date: 10/16/23 Discharge Time: 18:00 I agree with the RN Medical Screening Exam: Yes Case reviewed; plan agreed upon as documented in EMR&OBIX.: Yes Diagnosis: OTH RELATED CONDITIONS, SECOND TRIMESTER
== END 2023-10-16 18:08 | disposition home or self-care (01) ==
LOC: FBPOP 15:29
PROVIDERS: ATTEND Obstetrics & Gynecology
DX: O26.892 Other specified pregnancy related conditions, second trimester (principal); M54.50 Low back pain, unspecified; R25.2 Cramp and spasm; O26.852 Spotting complicating pregnancy, second trimester; Z3A.20 20 weeks gestation of pregnancy
CPT/HCPCS: 86900; 86901; 86762; 82947; 85025; 86850; 87340; 81001; 87491; 87591; 86780; 80306; 87390; 76805; G0463; 99213

== ENCOUNTER 2024-02-08 08:58 | Inpatient (IN) | payer OTHER | END 2024-02-12 10:00 | disposition home or self-care (01) | DRG 540 | LOC: 4FBP 08:58 | PROVIDERS: ADMIT Family Medicine; ATTEND Family Medicine | PROC: 10D00Z1 Extraction of Products of Conception, Low, Open Approach (ICD-10-PCS; principal; 2024-02-08) | DX: O26.643 Intrahepatic cholestasis of pregnancy, third trimester (principal); O34.211 Maternal care for low transverse scar from previous cesarean delivery; Z3A.37 37 weeks gestation of pregnancy; Z37.0 Single live birth; Z91.048 Other nonmedicinal substance allergy status ==

== ENCOUNTER 2024-03-04 12:13 | Emergency (ER) | payer OTHER ==
[2024-03-04 12:24] VITALS: RESP 16
--- NOTE | 2024-03-04 13:12 | ED ---
Female Urogenital HPI - General Chief complaint: Vaginal Bleeding Stated complaint: Vag Bleeding Time Seen by Provider: 03/04/24 13:09 Source: patient, RN notes reviewed Mode of arrival: ambulatory Limitations: no limitations - History of Present Illness Initial comments: 23-year-old female presenting with vaginal bleeding x 1 day. States she had a 1 month ago (February 08, 2024), and has had vaginal bleeding since. States she passed several clots the day after the , bleeding has been intermittent over the course of the month. She states yesterday she began to experience pelvic cramping and this morning passed a large clot. She has not yet had postop follow-up with [facility] Dr. Mcpherson. Admits to general fatigue. Denies fever, chills, nausea, vomiting. States that her incision has been healing well with no complications. - Related Data Home Medications Medication Instructions Recorded Confirmed Odd-Opwp-Igyfb Acid 1 cap PO DAILY 03/06/21 10/16/23 [-U Capsule (formulary)] Previous Rx's Medication Instructions Recorded Cephalexin [Keflex] 500 mg PO Q12HR 7 Days #14 cap 03/04/24 Allergies Allergy/AdvReac Type Severity Reaction Status Date / Time No Known Allergies Allergy Verified 03/04/24 12:24 Review of Systems ROS Statement: Those systems with pertinent positive or pertinent negative responses have been documented in the HPI. ROS Other: All systems not noted in ROS Statement are negative. Past Medical History Past Medical History: Asthma, GERD/Reflux Additional Past Medical History / Comment(s): Cholestasis History of Any Multi-Drug Resistant Organisms: None Reported Past Surgical History: Appendectomy, Cholecystectomy Past Anesthesia/Blood Transfusion Reactions: No Reported Reaction Past Psychological History: Anxiety Smoking Status: Never smoker Past Alcohol Use History: None Reported Past Drug Use History: None Reported - Past Family History Father Family Medical History: Diabetes Mellitus, Hypertension Sister(s) Family Medical History: Asthma General Exam Limitations: no limitations General appearance: alert, in no apparent distress Head exam: Present: atraumatic, normocephalic, normal inspection Eye exam: Present: normal appearance, PERRL, EOMI, other (No pallor). Absent: scleral icterus, conjunctival injection, periorbital swelling Respiratory exam: Present: normal lung sounds bilaterally. Absent: respiratory distress, wheezes, rales, rhonchi, stridor Cardiovascular Exam: Present: regular rate, normal rhythm, normal heart sounds. Absent: systolic murmur, diastolic murmur, rubs, gallop, clicks GI/Abdominal exam: Present: soft, normal bowel sounds, other (Horizontal incision in pelvic region clean dry and intact. No drainage or surrounding erythema). Absent: distended, tenderness, guarding, rebound, rigid Neurological exam: Present: alert, oriented X3 Psychiatric exam: Present: normal affect, normal mood Skin exam: Present: warm, dry, intact, normal color. Absent: rash Course Vital Signs 03/04/24 03/04/24 03/04/24 12:21 15:09 16:20 Temperature 98.2 F 98.4 F Pulse Rate 75 83 91 Respiratory 16 16 16 Rate Blood Pressure 143/87 122/82 123/85 O2 Sat by Pulse 99 97 98 Oximetry Medical Decision Making - Medical Decision Making Was pt. sent in by a medical professional or institution (, PA, LEGAL OFFICER, urgent care, hospital, or [facility]...) When possible be specific @ -No Did you speak to anyone other than the patient for history (EMS, parent, family, police, friend...)? What history was obtained from this source @ -No Did you review nursing and triage notes (agree or disagree)? Why? @ -I reviewed and agree with nursing and triage notes Were old charts reviewed (outside hosp., previous admission, EMS record, old EKG, old radiological studies, urgent care reports/EKG's, [facility] records)? Report findings @ -No old charts were reviewed Differential Diagnosis (chest pain, altered mental status, abdominal pain women, abdominal pain men, vaginal bleeding, weakness, fever, dyspnea, syncope, headache, dizziness, GI bleed, back pain, seizure, CVA, palpatations, mental health, musculoskeletal)? @ -Differential Vaginal Bleeding: Spontaneous , threatened , molar , ectopic , bloody show, incompetent cervix, abruptioplacenta, placenta previa, uterine rupture, dysfunctional uterine bleeding, hemorrhage, uterine fibroids, this is not meant to be an all-inclusive list. EKG interpreted by me (3pts min.). @ -None X-rays interpreted by me (1pt min.). @ -None done CT interpreted by me (1pt min.). @ -None done U/S interpreted by me (1pt. min.). @ -None done What testing was considered but not performed or refused? (CT, X-rays, U/S, labs)? Why? @ -None What meds were considered but not given or refused? Why? @ -None Did you discuss the management of the patient with other professionals (professionals i.e. DrTrish, PA, LEGAL OFFICER, lab, RT, psych nurse, child welfare social worker, crate maker, teacher, employment security officer, case management coordinator)? Give summary @ -No Was smoking cessation discussed for >3mins.? @ -No Was critical care preformed (if so, how long)? @ -No Were there social determinants of health that impacted care today? How? (Homelessness, low income, unemployed, alcoholism, drug addiction, transportation, low edu. Level, literacy, decrease access to med. care, penitentiary, rehab)? @ -No Was there de-escalation of care discussed even if they declined (Discuss DNR or withdrawal of care, Hospice)? DNR status @ -No What co-morbidities impacted this encounter? (DM, HTN, Smoking, COPD, CAD, Cancer, CVA, ARF, Chemo, Hep., AIDS, mental health diagnosis, sleep apnea, morbid obesity)? @ -None Was patient admitted / discharged? Hospital course, mention meds given and route, prescriptions, significant lab abnormalities, going to OR and other pertinent info. @ -Patient was discharged. Patient was seen and evaluated for vaginal bleeding x 1 day with pelvic cramping. Patient had 1 month ago. Patient is tolerating orals well, no red flag symptoms. Vital signs are within normal limits. No abdominal tenderness to palpation on examination. Lab work including CBC, CMP, lactic acid is unremarkable. Hemoglobin is stable at 10.9. Urine is remarkable for large amount of red blood cells and white blood cells. Ultrasound of pelvis is unremarkable. Discussed diagnosis of urinary tract infection with patient. I believe this may be causing abdominal cramping, however instructed patient to follow-up with OB for upcoming appointment in 3 days to address vaginal bleeding. Return precautions discussed. Prescribed Keflex. Patient conveys understanding and is agreeable to plan. Case was discussed with my ED attending Dr. Ridley. Patient discharged in stable condition. Undiagnosed new problem with uncertain prognosis? @ -No Drug Therapy requiring intensive monitoring for toxicity (Heparin, Nitro, Insulin, Cardizem)? @ -No Were any procedures done? @ -No Diagnosis/symptom? @ -Urinary tract infection, vaginal bleeding Acute, or Chronic, or Acute on Chronic? @ -Acute Uncomplicated (without systemic symptoms) or Complicated (systemic symptoms)? @ -Uncomplicated Side effects of treatment? @ -No Exacerbation, Progression, or Severe Exacerbation? @ -No Poses a threat to life or bodily function? How? (Chest pain, USA, PA, pneumonia, PE, COPD, DKA, ARF, appy, cholecystitis, CVA, Diverticulitis, Homicidal, Suicidal, threat to staff... and all critical care pts) @ -No - Lab Data Result diagrams: 03/04/24 14:39 03/04/24 14:39 Lab Results 03/04/24 03/04/24 03/04/24 Range/Units 14:39 14:39 14:39 WBC 7.5 (3.8-10.6) k/uL RBC 4.03 (3.80-5.40) m/uL Hgb 10.9 L (11.4-16.0) gm/dL Hct 33.2 L (34.0-46.0) % MCV 82.3 (80.0-100.0) fL MCH 27.1 (25.0-35.0) pg MCHC 33.0 (31.0-37.0) g/dL RDW 13.4 (11.5-15.5) % Plt Count 451 H (150-450) k/uL MPV 7.9 Neutrophils % 63 % Lymphocytes % 25 % Monocytes % 5 % Eosinophils % 6 % Basophils % 1 % Neutrophils # 4.7 (1.3-7.7) k/uL Lymphocytes # 1.8 (1.0-4.8) k/uL Monocytes # 0.4 (0-1.0) k/uL Eosinophils # 0.4 (0-0.7) k/uL Basophils # 0.1 (0-0.2) k/uL Sodium 139 (137-145) mmol/L Potassium 4.4 (3.5-5.1) mmol/L Chloride 108 H (98-107) mmol/L Carbon Dioxide 26 (22-30) mmol/L Anion Gap 5 mmol/L BUN 11 (7-17) mg/dL Creatinine 0.57 (0.52-1.04) mg/dL Est GFR (CKD-EPI)AfAm >90 (>60 ml/min/1.73 sqM) Est GFR (CKD-EPI)NonAf >90 (>60 ml/min/1.73 sqM) Glucose 99 (74-99) mg/dL Plasma Lactic Acid Romaine 0.9 (0.7-2.0) mmol/L Calcium 8.6 (8.4-10.2) mg/dL Total Bilirubin 0.4 (0.2-1.3) mg/dL AST 20 (14-36) U/L ALT 9 (4-34) U/L Alkaline Phosphatase 99 (38-126) U/L Total Protein 6.0 L (6.3-8.2) g/dL Albumin 3.4 L (3.5-5.0) g/dL Urine Color Urine Appearance (Clear) Urine pH (5.0-8.0) Ur Specific [place] (1.001-1.035) Urine Protein (Negative) Urine Glucose (UA) (Negative) Urine Ketones (Negative) Urine Blood (Negative) Urine Nitrite (Negative) Urine Bilirubin (Negative) Urine Urobilinogen (<2.0) mg/dL Ur Leukocyte Esterase (Negative) Urine RBC (0-5) /hpf Urine WBC (0-5) /hpf Ur Squamous Epith Cells (0-4) /hpf Urine Mucus (None) /hpf 03/04/24 Range/Units 15:10 WBC (3.8-10.6) k/uL RBC (3.80-5.40) m/uL Hgb (11.4-16.0) gm/dL Hct (34.0-46.0) % MCV (80.0-100.0) fL MCH (25.0-35.0) pg MCHC (31.0-37.0) g/dL RDW (11.5-15.5) % Plt Count (150-450) k/uL MPV Neutrophils % % Lymphocytes % % Monocytes % % Eosinophils % % Basophils % % Neutrophils # (1.3-7.7) k/uL Lymphocytes # (1.0-4.8) k/uL Monocytes # (0-1.0) k/uL Eosinophils # (0-0.7) k/uL Basophils # (0-0.2) k/uL Sodium (137-145) mmol/L Potassium (3.5-5.1) mmol/L Chloride (98-107) mmol/L Carbon Dioxide (22-30) mmol/L Anion Gap mmol/L BUN (7-17) mg/dL Creatinine (0.52-1.04) mg/dL Est GFR (CKD-EPI)AfAm (>60 ml/min/1.73 sqM) Est GFR (CKD-EPI)NonAf (>60 ml/min/1.73 sqM) Glucose (74-99) mg/dL Plasma Lactic Acid Romaine (0.7-2.0) mmol/L Calcium (8.4-10.2) mg/dL Total Bilirubin (0.2-1.3) mg/dL AST (14-36) U/L ALT (4-34) U/L Alkaline Phosphatase (38-126) U/L Total Protein (6.3-8.2) g/dL Albumin (3.5-5.0) g/dL Urine Color Yellow Urine Appearance Cloudy H (Clear) Urine pH 6.0 (5.0-8.0) Ur Specific [place] 1.023 (1.001-1.035) Urine Protein 1+ H (Negative) Urine Glucose (UA) Negative (Negative) Urine Ketones Negative (Negative) Urine Blood Large H (Negative) Urine Nitrite Negative (Negative) Urine Bilirubin Negative (Negative) Urine Urobilinogen <2.0 (<2.0) mg/dL Ur Leukocyte Esterase Large H (Negative) Urine RBC 64 H (0-5) /hpf Urine WBC 44 H (0-5) /hpf Ur Squamous Epith Cells 2 (0-4) /hpf Urine Mucus Rare H (None) /hpf Disposition Clinical Impression: Urinary tract infection, Vaginal bleeding Disposition: HOME SELF-CARE Condition: Stable Instructions (If sedation given, give patient instructions): Urinary Tract Infection in Women (ED) Additional Instructions: Take antibiotic as prescribed. Follow-up for OB appointment on . Please return to the Emergency Department if symptoms worsen or any other concer ns. Prescriptions: Cephalexin [Keflex] 500 mg PO Q12HR 7 Days #14 cap Is patient prescribed a controlled substance at d/c from ED?: No Referrals: Nic Santa MD [Primary Care Provider] - 1-2 days Time of Disposition: 16:05
[2024-03-04 15:08] LABS: Basophils # (A) 0.1 k/uL (0-0.2); Basophils % (A) 1 %; Eosinophils # (A) 0.4 k/uL (0-0.7); Eosinophils % (A) 6 %; HCT 33.2 % (34.0-46.0); HGB 10.9 gm/dL (11.4-16.0); Lymphocytes # (A) 1.8 k/uL (1.0-4.8); Lymphocytes % (A) 25 %; MCH 27.1 pg (25.0-35.0); MCV 82.3 fL (80.0-100.0); Mean Platelet Volume 7.9; Monocytes # (A) 0.4 k/uL (0-1.0); Monocytes % (A) 5 %; Neutrophils # (A) 4.7 k/uL (1.3-7.7); Neutrophils % (A) 63 %; Platelet Count 451 k/uL (150-450); RBC 4.03 m/uL (3.80-5.40); RDW 13.4 % (11.5-15.5); WBC 7.5 k/uL (3.8-10.6)
[2024-03-04] MEDS: SODIUM CHLORIDE 0.9% 1,000 ML IV STA (15:08)
[2024-03-04 15:21] LABS: ALT 9 U/L (4-34); AST 20 U/L (14-36); African American GFR (CKD) >90 (>60 ml/min/1.73 sqM); Albumin 3.4 g/dL (3.5-5.0); Alkaline Phosphatase 99 U/L (38-126); Anion Gap 5 mmol/L; Blood Urea Nitrogen 11 mg/dL (7-17); Calcium 8.6 mg/dL (8.4-10.2); Carbon Dioxide 26 mmol/L (22-30); Chloride 108 mmol/L (98-107); Glucose 99 mg/dL (74-99); Non-African American GFR(CKD) >90 (>60 ml/min/1.73 sqM); Potassium 4.4 mmol/L (3.5-5.1); Sodium 139 mmol/L (137-145); Total Bilirubin 0.4 mg/dL (0.2-1.3)
--- NOTE | 2024-03-04 15:37 | US ---
EXAMINATION TYPE: US pelvic complete DATE OF EXAM: 03/04/2024 COMPARISON: NONE CLINICAL INDICATION: Female, 23 years old with history of vaginal bleeding s/p ; Pt had c-se ction on 02/08/24. Bleeding since with clots TECHNIQUE: . Transabdominal sonographic images of the pelvis were acquired. Date of LMP: over 9 months ago EXAM MEASUREMENTS: Uterus: 9.7 x 5.6 x 4.8 cm Endometrial Stripe: 0.9 cm Right Ovary: not seen Left Ovary: 3.4 x 2.8 x 1.3 cm 1. Uterus: Anteverted wnl 2. Endometrium: wnl 3. Right Ovary: Not seen due to bowel gas 4. Left Ovary: wnl Spectral, color and waveform doppler imaging shows good arterial and venous flow within the ovaries ; there is no evidence for ovarian torsion. 5. Bilateral Adnexa: wnl 6. Posterior cul-de-sac: wnl Slightly limited due to bladder not being fully distended. No hypervascularity seen in endometrium IMPRESSION: 1. No acute pelvic ultrasound abnormality.
[2024-03-04 15:53] LABS: Appearance,Urine Cloudy (Clear); Bilirubin,Urine Negative (Negative); Blood,Urine Large (Negative); Color,Urine Yellow; Glucose,Urine (UA) Negative (Negative); Ketones,Urine Negative (Negative); Leukocyte Esterase,Urine Large (Negative); Mucus,Urine Rare /hpf; Nitrite,Urine Negative (Negative); Protein,Urine 1+ (Negative); RBC,Urine 64 /hpf (0-5); Specific Gravity,Urine 1.023 (1.001-1.035); Squamous Epithelial Cell,Urine 2 /hpf (0-4); Urobilinogen,Urine <2.0 mg/dL (<2.0); WBC,Urine 44 /hpf (0-5)
[2024-03-04 16:20] VITALS: BP 123/85; PULSE 91; TEMP 98.4
== END 2024-03-04 16:21 | disposition home or self-care (01) ==
LOC: EC 12:13
CPT/HCPCS: 36415; 76856; 80053; 81001; 83605; 85025; 93976; 96360; 99284